=== PATIENT | male | born 1975 | race Caucasian/White ===

== ENCOUNTER 2019-05-28 19:43 | Emergency (ER) | payer MEDICAID, OTHER, SELFPAY ==
[~2019-05-28 19:43] MED LIST: BABY81CH; METOPROLOL; PRAV80TA; PRIL40CA
[2019-05-28] MEDS ORDERED: MULTTAB61 PO (19:50)
[2019-05-28 20:21] LABS: HEMATOCRIT 45.8 % (42.0-52.0); HEMOGLOBIN 15.9 g/dl (13.5-17.5); MEAN CORPUSCULAR HEMOGLOBIN 30.8 pg (27.0-33.0); MEAN CORPUSCULAR HGB CONC 34.7 g/dl (32.0-36.5); MEAN CORPUSCULAR VOLUME 88.8 fl (80.0-96.0); PLATELET COUNT, AUTOMATED 263 10^3/uL (150-450); RED BLOOD COUNT 5.16 10^6/uL (4.30-6.10); WHITE BLOOD COUNT 9.3 10^3/uL (4.0-10.0)
[2019-05-28] MEDS ORDERED: KETOROLAC 30 MG/ML VIAL (J1885) IV ONE (20:45)
[2019-05-28] MEDS ORDERED: NS 1,000 ML IV ONE (21:00)
[2019-05-28 21:25] LABS: ALBUMIN 3.8 GM/DL (3.2-5.2); BILIRUBIN,DIRECT 0.1 MG/DL (0.0-0.2); BILIRUBIN,TOTAL 0.5 MG/DL (0.2-1.0); TOTAL PROTEIN 7.1 GM/DL (6.4-8.2)
[2019-05-28] MEDS ORDERED: BACT800T5 PO (22:21)
[2019-05-28] MEDS ORDERED: BACTRIM 160MG/800MG DS TAB PO ONE (22:30)
[2019-05-28 22:34] VITALS: BP 135/80
== END 2019-05-28 22:39 | disposition home or self-care (01) ==
LOC: M ED 19:43
DX: R31.29 Other microscopic hematuria (principal); I10 Essential (primary) hypertension; F32.9 Major depressive disorder, single episode, unspecified; F41.9 Anxiety disorder, unspecified; K21.9 Gastro-esophageal reflux disease without esophagitis; E78.5 Hyperlipidemia, unspecified; Z87.891 Personal history of nicotine dependence; Z79.899 Other long term (current) drug therapy; Z79.82 Long term (current) use of aspirin
CPT/HCPCS: 36415; 74176; 80047; 80076; 81001; 83690; 85027; 96361; 96374; 99284; J1885

== ENCOUNTER 2019-10-04 05:45 | Emergency (ER) | payer BC, SELFPAY ==
[~2019-10-04] VITALS: Ht 172.7 cm; Wt 154.6 kg
[~2019-10-04 05:45] MED LIST changes: +BACT800T5 PO; +MULTTAB61 PO
[2019-10-04] MEDS ORDERED: IBUPROFEN 800 MG TAB PO ONE (07:00)
--- NOTE | 2019-10-04 08:21 | REP ---
Right ankle series: Four views. History: Trauma. Findings: Four views right ankle demonstrate intact ankle mortise. No ankle fractures seen. There is diffuse soft tissue swelling. On the frontal views, the medial aspect of the tarsal navicula appears possibly subluxed. Recommend foot radiographs. There is mild spurring of the distal aspect of the first metatarsal. A tiny plantar calcaneal spur is also noted. Impression: No ankle fracture seen. Question tarsal navicula subluxation. Recommend foot radiographs. Electronically Signed by Julian Salazar MD 10/04/2019 08:13 A
--- NOTE | 2019-10-04 08:24 | REP ---
RIGHT KNEE SERIES: Four views. HISTORY: Injury. FINDINGS: There is an obliquely oriented nondisplaced fracture in the proximal fibular diaphysis. No tibial fracture is seen. No fracture is noted in the patella or distal femur. There is no evidence of joint effusion. There is no sunrise view obtained. IMPRESSION: Nondisplaced obliquely oriented proximal fibular diaphyseal fracture. No other fracture seen. Electronically Signed by Julian Salazar MD 10/04/2019 09:12 A
--- NOTE | 2019-10-04 08:24 | REP ---
RIGHT TIB/FIB SERIES: Three views. HISTORY: Injury. FINDINGS: There is a nondisplaced fracture of the proximal fibular diaphysis. No tibial fracture is appreciated. Mild soft tissue swelling is seen in the proximal calf. IMPRESSION: Obliquely oriented nondisplaced fracture of the proximal fibular diaphysis. Electronically Signed by Julian Salazar MD 10/04/2019 09:11 A
[2019-10-04] MEDS ORDERED: IBUP80TA PO (08:53)
[2019-10-04 09:13] VITALS: BP 144/77
--- NOTE | 2019-10-04 09:20 | REP ---
RIGHT FOOT: Four views. HISTORY: Injury. FINDINGS: Four views of the right foot are compared with the right ankle views obtained earlier. There is no evidence of fracture or subluxation of the tarsal bones. Plantar calcaneal spurring is noted. The medial process of the tarsal navicula is developmentally prominent which explains the radiographic findings on the ankle radiographs . There is diffuse soft tissue swelling. IMPRESSION: No fracture seen. Developmentally prominent medial process of the tarsal navicula. Electronically Signed by Julian Salazar MD 10/04/2019 10:37 A
== END 2019-10-04 09:35 | disposition home or self-care (01) ==
LOC: M ED 05:45
DX: S82.434A Nondisplaced oblique fracture of shaft of right fibula, initial encounter for closed fracture (principal); Y35.93XA Legal intervention, means unspecified, suspect injured, initial encounter; Y92.410 Unspecified street and highway as the place of occurrence of the external cause

== ENCOUNTER → 2019-11-06 | Outpatient (REF) | payer OTHER ==
[~2019-11-06] MED LIST changes: +IBUP80TA PO
[2019-11-06 11:53] LABS: HEMOGLOBIN A1c 5.6 %
[2019-11-06 12:10] LABS: ALT/SGPT 25 U/L (12-78); BILIRUBIN,TOTAL 0.6 MG/DL (0.2-1.0); BLOOD UREA NITROGEN 16 MG/DL (7-18); CALCIUM LEVEL 8.9 MG/DL (8.5-10.1); CARBON DIOXIDE LEVEL 30 MEQ/L (21-32); CHLORIDE LEVEL 106 MEQ/L (98-107); CHOLESTEROL LEVEL 238 MG/DL (<200); CHOLESTEROL RISK RATIO 6.263 (<5); GLOMERULAR FILTRATION RATE > 60.0 (>60); GLUCOSE, FASTING 106 MG/DL (70-100); HDL CHOLESTEROL 38 MG/DL (>40); LDL CHOLESTEROL 170 MG/DL (<100); NON-HDL-C 200 MG/DL; POTASSIUM SERUM 4.2 MEQ/L (3.5-5.1); SODIUM LEVEL 142 MEQ/L (136-145); TOTAL PROTEIN 7.5 GM/DL (6.4-8.2); TRIGLYCERIDES LEVEL 149 MG/DL (<150)
== END ==
LOC: M SFHCPLAZ 08:29
PROVIDERS: ATTEND Physician Assistant
DX: Z00.00 Encounter for general adult medical examination without abnormal findings (principal); I10 Essential (primary) hypertension; Z13.29 Encounter for screening for other suspected endocrine disorder; Z13.1 Encounter for screening for diabetes mellitus; E78.2 Mixed hyperlipidemia

== ENCOUNTER 2019-12-10 17:17 | Emergency (ER) | payer OTHER ==
[~2019-12-10] VITALS: Ht 172.7 cm; Wt 168.1 kg
[2019-12-10] MEDS ORDERED: METO50TA9 (17:40)
[2019-12-10] MEDS ORDERED: ATOR40TA75 (17:40)
[2019-12-10] MEDS ORDERED: ASPI81TA26 (17:40)
[2019-12-10] MEDS ORDERED: ONDANSETRON 4MG/2ML VIAL (J2405) IV ONE (18:45)
[2019-12-10] MEDS ORDERED: NS 1,000 ML IV ONE (18:45)
[2019-12-10] MEDS ORDERED: MORPHINE 4 MG/ML 1ML VIAL/SYRINGE (J2270) IV ONE (18:45)
[2019-12-10] MEDS ORDERED: ISOVUE-370 76% 100ML VIAL (Q9967) As Ordered ONE (19:34)
[2019-12-10 19:35] LABS: BASO # 0.1 10^3/uL (0.0-0.2); BASO % 0.6 % (0.0-1.0); EOS # 0.1 10^3/uL (0.0-0.5); EOS % 0.7 % (0.0-3.0); HEMATOCRIT 41.3 % (42.0-52.0); HEMOGLOBIN 14.3 g/dl (13.5-17.5); LYMPH # 2.4 10^3/uL (1.5-5.0); LYMPH % 18.7 % (24.0-44.0); MEAN CORPUSCULAR HEMOGLOBIN 28.9 pg (27.0-33.0); MEAN CORPUSCULAR HGB CONC 34.6 g/dl (32.0-36.5); MEAN CORPUSCULAR VOLUME 83.6 fl (80.0-96.0); MONO # 1.1 10^3/uL (0.0-0.8); MONO % 8.8 % (0.0-5.0); NEUTROPHILS % 70.7 % (36.0-66.0); PLATELET COUNT, AUTOMATED 250 10^3/uL (150-450); RED BLOOD COUNT 4.94 10^6/uL (4.30-6.10); WHITE BLOOD COUNT 12.7 10^3/uL (4.0-10.0)
[2019-12-10 19:59] LABS: ALBUMIN 3.2 GM/DL (3.2-5.2); BILIRUBIN,DIRECT 0.3 MG/DL (0.0-0.2); C REACTIVE PROTEIN QUANTITATIV 8.2 MG/DL (0.00-0.30); TOTAL PROTEIN 6.6 GM/DL (6.4-8.2)
[2019-12-10] MEDS ORDERED: POTASSIUM CHLORIDE 10 MEQ SR TABLET PO ONE (20:15)
[2019-12-10 20:16] LABS: INFLUENZA A AMPLIFICATION NEGATIVE (NEGATIVE); INFLUENZA B AMPLIFICATION NEGATIVE (NEGATIVE)
[2019-12-10 20:20] LABS: ERYTHROCYTE SEDIMENTATION RATE 25 mm/hr (0-15)
--- NOTE | 2019-12-10 21:21 | REPVR ---
PROCEDURE INFORMATION: Exam: CT Abdomen And Pelvis With Contrast Exam date and time: 12/10/2019 8:00 PM Age: 44 years old Clinical indication: Abdominal pain; Generalized; Additional info: Lower abd pain, fever, dysuria TECHNIQUE: Imaging protocol: Computed tomography of the abdomen and pelvis with intravenous contrast. Radiation optimization: All CT scans at this facility use at least one of these dose optimization techniques: automated exposure control; mA and/or kV adjustment per patient size (includes targeted exams where dose is matched to clinical indication); or iterative reconstruction. Contrast material: ISOVUE 370; Contrast volume: 100 ml; Contrast route: IV; COMPARISON: CT ABD PELVIS W/O CONTRAST 05/28/2019 8:25 PM FINDINGS: Liver: 8 mm low-dense hepatic lesion near the dome. In a low-risk patient, this lesion is most likely to be benign and no further follow-up is recommended. In a high-risk patient, recommend follow-up MRI in 3-6 months (or earlier if warranted by the patient's specific clinical circumstances). Gallbladder and bile ducts: No radiopaque calculi are seen in the gallbladder. Pancreas: The pancreas is normal. Spleen: Normal. No splenomegaly. Adrenals: The adrenal glands are normal. Kidneys and ureters: Go spleenThe kidneys are normal. Stomach and bowel: There is no evidence of intestinal obstruction. There is marked inflammation surrounding a sigmoid colonic bowel loop in the mid abdomen anteriorly at and just below the level of the umbilicus. Air is seen within the area of inflammation which may be within diverticula or loculated. The area of inflammation measures approximately 7.5 cm AP x 6.6 cm in width and has the appearance of a phlegmon. No drainable abscess is identified. The sigmoid colonic wall is thickened in this location and diverticula are present. Appendix: No evidence of appendicitis however the appendix does lie along the superior margin of the phlegmon series 201, image 56. Intraperitoneal space: Unremarkable. No free air. No significant fluid collection. Vasculature: The aorta is normal. Lymph nodes: Unremarkable. No enlarged lymph nodes. Bladder: Urinary bladder wall is thickened however it is decompressed which may account for this appearance. Reproductive: No significant prostatic enlargement. Bones/joints: Unremarkable. No acute fracture. Soft tissues: Unremarkable. IMPRESSION: Probable acute sigmoid diverticulitis with surrounding phlegmon without drainable abscess. There may be localized perforation but the air could also be within diverticulae. A normal appearing appendix is seen along the superior margin of the inflammation. Electronically signed by: Tran Delarosa On 12/10/2019 21:21:05 PM
[2019-12-10] MEDS ORDERED: metroNIDAZOLE 500 MG in IV 1 EA IV ONE (23:30)
[2019-12-10] MEDS ORDERED: CIPROFLOXACIN 400 MG in IV 1 EA IV ONE (23:30)
[2019-12-11] MEDS ORDERED: CIPR-249 PO (00:32)
[2019-12-11] MEDS ORDERED: NORC1TAB7 PO (00:32)
[2019-12-11] MEDS ORDERED: FLAG500T PO (00:32)
[2019-12-11] MEDS ORDERED: ONDA4TAB6 PO (00:32)
[2019-12-11] MEDS ORDERED: NORCO 5/325MG TABLET (BULK FOR ED) PO ONE (00:45)
[2019-12-11 01:25] VITALS: BP 120/67
--- NOTE | 2019-12-13 18:56 | ED PDOC ---
Post-Departure Follow-Up ct abd/p faxed to noemi snider for fu Ayala Carmona MD Dec 13, 2019 18:56
== END 2019-12-11 02:27 | disposition home or self-care (01) ==
LOC: M ED 17:17
DX: K57.32 Diverticulitis of large intestine without perforation or abscess without bleeding (principal); R10.32 Left lower quadrant pain; R50.9 Fever, unspecified; I10 Essential (primary) hypertension; E78.5 Hyperlipidemia, unspecified; Z79.82 Long term (current) use of aspirin; Z79.899 Other long term (current) drug therapy
CPT/HCPCS: 74177; 80047; 80076; 81001; 83605; 83690; 84132; 85025; 85652; 86140; 87040; 87502; 96361; 96365; 96367; 96374; 96375; 99284; J0744; J2270; J2405; Q9967

== ENCOUNTER → 2020-04-08 | Outpatient (REF) | payer OTHER ==
[~2020-04-08] MED LIST changes: +ASPI81TA26; +ATOR40TA75; +CIPR-249 PO; +FLAG500T PO; +METO50TA9; +NORC1TAB7 PO; +ONDA4TAB6 PO
[2020-04-08 11:21] LABS: BLOOD UREA NITROGEN 17 MG/DL (7-18); CALCIUM LEVEL 8.9 MG/DL (8.5-10.1); CARBON DIOXIDE LEVEL 27 MEQ/L (21-32); CHLORIDE LEVEL 108 MEQ/L (98-107); CREATININE FOR GFR 1.03 MG/DL (0.70-1.30); GLOMERULAR FILTRATION RATE > 60.0 (>60); GLUCOSE, FASTING 119 MG/DL (70-100); POTASSIUM SERUM 3.5 MEQ/L (3.5-5.1); SODIUM LEVEL 142 MEQ/L (136-145)
[2020-04-08 11:31] LABS: FOLATE 7.9 NG/ML; VITAMIN B12 LEVEL 552 PG/ML
== END ==
LOC: M SFHCPLAZ 08:25
PROVIDERS: ATTEND Physician Assistant
DX: R25.1 Tremor, unspecified (principal)

== ENCOUNTER → 2020-06-28 | Outpatient (CLI) | payer OTHER ==
[2020-06-28 12:29] LABS: BASO # 0.1 10^3/uL (0.0-0.2); BASO % 0.9 % (0.0-1.0); EOS # 0.1 10^3/uL (0.0-0.5); EOS % 2.3 % (0.0-3.0); HEMATOCRIT 43.6 % (42.0-52.0); HEMOGLOBIN 14.4 g/dl (13.5-17.5); LYMPH # 1.7 10^3/uL (1.5-5.0); LYMPH % 29.1 % (24.0-44.0); MEAN CORPUSCULAR HEMOGLOBIN 28.6 pg (27.0-33.0); MEAN CORPUSCULAR VOLUME 86.7 fl (80.0-96.0); MONO # 0.5 10^3/uL (0.0-0.8); MONO % 9.1 % (0.0-5.0); NEUTROPHILS # 3.3 10^3/uL (1.5-8.5); NEUTROPHILS % 58.3 % (36.0-66.0); PLATELET COUNT, AUTOMATED 274 10^3/uL (150-450); RED BLOOD COUNT 5.03 10^6/uL (4.30-6.10); WHITE BLOOD COUNT 5.7 10^3/uL (4.0-10.0)
[2020-06-28 13:06] LABS: HEMATOCRIT 43.4 % (42.0-52.0)
[2020-06-28 13:29] LABS: HEMOGLOBIN A1c 4.9 %
[2020-06-28 18:04] LABS: ALBUMIN 3.8 GM/DL (3.2-5.2); ALT/SGPT 33 U/L (12-78); BILIRUBIN,TOTAL 0.8 MG/DL (0.2-1.0); BLOOD UREA NITROGEN 17 MG/DL (7-18); CALCIUM LEVEL 9.3 MG/DL (8.5-10.1); CARBON DIOXIDE LEVEL 26 MEQ/L (21-32); CHLORIDE LEVEL 110 MEQ/L (98-107); CREATININE FOR GFR 0.74 MG/DL (0.70-1.30); FERRITIN 163 NG/ML (26-388); GLOMERULAR FILTRATION RATE > 60.0 (>60); GLUCOSE, FASTING 87 MG/DL (70-100); IRON (FE) 81 UG/DL (65-175); MAGNESIUM LEVEL 2.2 MG/DL (1.8-2.4); PERCENT SATURATION 36.3 % (19.7-50.0); PHOSPHORUS LEVEL 3.3 MG/DL (2.5-4.9); POTASSIUM SERUM 4.4 MEQ/L (3.5-5.1); SODIUM LEVEL 144 MEQ/L (136-145); TOTAL 25(OH) VITAMIN D 64.7 NG/ML (30.0-100.0); TOTAL IRON BINDING CAPACITY 223 UG/DL (250-450); TOTAL PROTEIN 6.6 GM/DL (6.4-8.2); VITAMIN B12 LEVEL 661 PG/ML (247-911)
== END ==
LOC: M PLALAB 09:00
PROVIDERS: ATTEND Surgery
DX: K91.2 Postsurgical malabsorption, not elsewhere classified (principal); E55.9 Vitamin D deficiency, unspecified; Z98.84 Bariatric surgery status

== ENCOUNTER → 2020-10-27 | Outpatient (CLI) | payer OTHER ==
[2020-10-27 11:41] LABS: BASO # 0.1 10^3/uL (0.0-0.2); BASO % 1.1 % (0.0-1.0); EOS # 0.2 10^3/uL (0.0-0.5); EOS % 2.8 % (0.0-3.0); HEMATOCRIT 43.2 % (42.0-52.0); HEMATOCRIT 43.4 % (42.0-52.0); HEMOGLOBIN 14.7 g/dl (13.5-17.5); LYMPH # 1.2 10^3/uL (1.5-5.0); LYMPH % 21.7 % (24.0-44.0); MEAN CORPUSCULAR HEMOGLOBIN 29.2 pg (27.0-33.0); MEAN CORPUSCULAR HGB CONC 33.9 g/dl (32.0-36.5); MEAN CORPUSCULAR VOLUME 86.3 fl (80.0-96.0); MONO # 0.5 10^3/uL (0.0-0.8); MONO % 9.6 % (0.0-5.0); NEUTROPHILS # 3.5 10^3/uL (1.5-8.5); NEUTROPHILS % 64.4 % (36.0-66.0); PLATELET COUNT, AUTOMATED 240 10^3/uL (150-450); RED BLOOD COUNT 5.03 10^6/uL (4.30-6.10); WHITE BLOOD COUNT 5.4 10^3/uL (4.0-10.0)
[2020-10-27 12:35] LABS: ALBUMIN 3.4 GM/DL (3.2-5.2); ALT/SGPT 29 U/L (12-78); BILIRUBIN,TOTAL 0.6 MG/DL (0.2-1.0); BLOOD UREA NITROGEN 15 MG/DL (7-18); CALCIUM LEVEL 8.8 MG/DL (8.5-10.1); CARBON DIOXIDE LEVEL 27 MEQ/L (21-32); CHLORIDE LEVEL 108 MEQ/L (98-107); CREATININE FOR GFR 0.77 MG/DL (0.70-1.30); GLOMERULAR FILTRATION RATE > 60.0 (>60); GLUCOSE, FASTING 86 MG/DL (70-100); IRON (FE) 52 UG/DL (65-175); MAGNESIUM LEVEL 2.5 MG/DL (1.8-2.4); PERCENT SATURATION 22.6 % (19.7-50.0); POTASSIUM SERUM 3.1 MEQ/L (3.5-5.1); SODIUM LEVEL 143 MEQ/L (136-145); TOTAL IRON BINDING CAPACITY 230 UG/DL (250-450); TOTAL PROTEIN 6.2 GM/DL (6.4-8.2); VITAMIN B12 LEVEL 499 PG/ML (247-911)
[2020-10-27 12:36] LABS: FERRITIN 148 NG/ML (26-388)
[2020-10-27 15:52] LABS: HEMOGLOBIN A1c 5.2 %
== END ==
LOC: M PLALAB 08:01
PROVIDERS: ATTEND Surgery
DX: K91.2 Postsurgical malabsorption, not elsewhere classified (principal); Z98.84 Bariatric surgery status; E55.9 Vitamin D deficiency, unspecified; Z86.39 Personal history of other endocrine, nutritional and metabolic disease

== ENCOUNTER → 2020-10-27 | Outpatient (REF) | payer OTHER ==
[2020-10-27 12:25] LABS: ALBUMIN 3.4 GM/DL (3.2-5.2); ALT/SGPT 30 U/L (12-78); BILIRUBIN,TOTAL 0.6 MG/DL (0.2-1.0); BLOOD UREA NITROGEN 16 MG/DL (7-18); CALCIUM LEVEL 8.6 MG/DL (8.5-10.1); CARBON DIOXIDE LEVEL 28 MEQ/L (21-32); CHLORIDE LEVEL 107 MEQ/L (98-107); CHOLESTEROL LEVEL 122 MG/DL (<200); CHOLESTEROL RISK RATIO 3.297 (<5); CREATININE FOR GFR 0.82 MG/DL (0.70-1.30); GLOMERULAR FILTRATION RATE > 60.0 (>60); GLUCOSE, FASTING 84 MG/DL (70-100); HDL CHOLESTEROL 37 MG/DL (>40); LDL CHOLESTEROL 73 MG/DL (<100); NON-HDL-C 85 MG/DL; POTASSIUM SERUM 3.1 MEQ/L (3.5-5.1); SODIUM LEVEL 143 MEQ/L (136-145); TOTAL PROTEIN 6.1 GM/DL (6.4-8.2); TRIGLYCERIDES LEVEL 59 MG/DL (<150)
[2020-10-27 12:46] LABS: MALB URINE SIEMENS 7.4 MG/L; MAU/CREAT RATIO 6.4 MCG/MG (0.0-30.0)
[2020-10-27 15:53] LABS: HEMOGLOBIN A1c 5.1 %
== END ==
LOC: M PLALAB 07:59
PROVIDERS: ATTEND Physician Assistant
DX: I10 Essential (primary) hypertension (principal); R73.01 Impaired fasting glucose; E78.2 Mixed hyperlipidemia

== ENCOUNTER → 2020-11-24 | Outpatient (CLI) | payer OTHER | LOC: M PLALAB 08:03 | PROVIDERS: ATTEND Surgery | DX: E87.6 Hypokalemia (principal) ==

== ENCOUNTER 2021-12-19 16:15 | Emergency (ER) | payer OTHER ==
[~2021-12-19] VITALS: Ht 172.7 cm; Wt 102.3 kg
[2021-12-19 17:12] LABS: BASO # 0.1 10^3/uL (0.0-0.2); BASO % 0.8 % (0.0-1.0); EOS # 0.1 10^3/uL (0.0-0.5); EOS % 1.7 % (0.0-3.0); HEMATOCRIT 43.3 % (42.0-52.0); LYMPH # 2.6 10^3/uL (1.5-5.0); LYMPH % 34.6 % (24.0-44.0); MEAN CORPUSCULAR HEMOGLOBIN 30.1 pg (27.0-33.0); MEAN CORPUSCULAR HGB CONC 34.6 g/dl (32.0-36.5); MEAN CORPUSCULAR VOLUME 86.8 fl (80.0-96.0); MONO # 0.6 10^3/uL (0.0-0.8); MONO % 8.3 % (2.0-8.0); NEUTROPHILS # 4.1 10^3/uL (1.5-8.5); NEUTROPHILS % 54.3 % (36.0-66.0); PLATELET COUNT, AUTOMATED 245 10^3/uL (150-450); RED BLOOD COUNT 4.99 10^6/uL (4.30-6.10); WHITE BLOOD COUNT 7.6 10^3/uL (4.0-10.0)
[2021-12-19 17:47] LABS: ALBUMIN 3.7 GM/DL (3.2-5.2); ALT/SGPT 28 U/L (12-78); BILIRUBIN,DIRECT 0.1 MG/DL (0.0-0.2); BILIRUBIN,TOTAL 0.4 MG/DL (0.2-1.0); BLOOD UREA NITROGEN 15 MG/DL (7-18); CALCIUM LEVEL 8.4 MG/DL (8.5-10.1); CARBON DIOXIDE LEVEL 31 MEQ/L (21-32); CHLORIDE LEVEL 108 MEQ/L (98-107); CREATININE FOR GFR 0.89 MG/DL (0.70-1.30); GLOMERULAR FILTRATION RATE > 60.0 (>60); GLUCOSE, FASTING 94 MG/DL (70-100); LIPASE 84 U/L (73-393); POTASSIUM SERUM 3.8 MEQ/L (3.5-5.1); SODIUM LEVEL 141 MEQ/L (136-145); TOTAL PROTEIN 6.5 GM/DL (6.4-8.2)
[2021-12-19] MEDS ORDERED: ISOVUE-370 76% 100ML VIAL As Ordered ONE (20:22)
[2021-12-19 22:18] VITALS: BP 118/72
== END 2021-12-19 22:19 | disposition home or self-care (01) ==
LOC: M ED 16:15
DX: R10.84 Generalized abdominal pain (principal); R11.10 Vomiting, unspecified; I10 Essential (primary) hypertension; K21.9 Gastro-esophageal reflux disease without esophagitis; E78.5 Hyperlipidemia, unspecified; Z98.84 Bariatric surgery status
CPT/HCPCS: 36415; 74177; 80048; 80076; 81001; 83690; 85025; 87086; 99284; Q9967

== ENCOUNTER 2022-12-17 18:56 | Emergency (ER) | payer OTHER ==
[~2022-12-17] VITALS: Ht 172.7 cm; Wt 104.8 kg
[2022-12-17 20:38] VITALS: BP 124/70
[2022-12-17 21:42] LABS: BASO # 0.1 10^3/uL (0.0-0.2); BASO % 0.9 % (0.0-1.0); EOS # 0.2 10^3/uL (0.0-0.5); EOS % 1.7 % (0.0-3.0); HEMATOCRIT 41.1 % (42.0-52.0); HEMOGLOBIN 14.8 g/dl (13.5-17.5); LYMPH # 4.3 10^3/uL (1.5-5.0); LYMPH % 41.6 % (24.0-44.0); MEAN CORPUSCULAR HEMOGLOBIN 30.6 pg (27.0-33.0); MEAN CORPUSCULAR VOLUME 84.9 fl (80.0-96.0); MONO # 0.9 10^3/uL (0.0-0.8); MONO % 8.5 % (2.0-8.0); NEUTROPHILS # 4.8 10^3/uL (1.5-8.5); PLATELET COUNT, AUTOMATED 264 10^3/uL (150-450); RED BLOOD COUNT 4.84 10^6/uL (4.30-6.10); WHITE BLOOD COUNT 10.3 10^3/uL (4.0-10.0)
[2022-12-17 21:55] LABS: INR 0.95; PROTHROMBIN TIME 12.9 SECONDS (12.5-14.5)
[2022-12-17 21:56] LABS: PARTIAL THROMBOPLASTIN TIME 31.9 SECONDS (24.8-34.2)
[2022-12-17 21:57] LABS: AMPHETAMINES LEVEL URINE NEGATIVE (NEGATIVE); BARBITURATES URINE NEGATIVE (NEGATIVE); BENZODIAZEPINES URINE NEGATIVE (NEGATIVE); CANNABINOIDS URINE NEGATIVE (NEGATIVE); COCAINE METABOLITE URINE NEGATIVE (NEGATIVE); METHADONE URINE NEGATIVE (NEGATIVE); OPIATES URINE NEGATIVE (NEGATIVE); PHENCYCLIDINE URINE NEGATIVE (NEGATIVE)
[2022-12-17 22:15] LABS: CK-MB VALUE MASS < 1.0 NG/ML (<3.6); ETHYL ALCOHOL (ETHANOL) 0.218 % (0.000-0.010); LIPASE 31 U/L (12-53)
[2022-12-17 22:17] LABS: ALBUMIN 3.7 G/DL (3.2-5.2); ALKALINE PHOSPHATASE 76 U/L (46-116); ALT/SGPT 15 U/L (7.0-40); AST/SGOT 18 U/L (<34); BILIRUBIN,DIRECT 0.1 MG/DL (<0.4); BILIRUBIN,TOTAL 0.3 MG/DL (0.3-1.2); BLOOD UREA NITROGEN 13 MG/DL (9-23); CALCIUM LEVEL 8.4 MG/DL (8.5-10.1); CARBON DIOXIDE LEVEL 28 MMOL/L (20-31); CHLORIDE LEVEL 104 MMOL/L (98-107); CPK CREATINE PHOSPHOKINASE 133 U/L (46-171); CREATININE FOR GFR 0.72 MG/DL (0.70-1.30); GLOMERULAR FILTRATION RATE > 60.0 (>60); GLUCOSE, FASTING 90 MG/DL (60-100); MAGNESIUM LEVEL 2.1 MG/DL (1.8-2.4); MB/CK RELATIVE INDEX 0.75 (< OR =4); POTASSIUM SERUM 3.2 MMOL/L (3.5-5.1); SODIUM LEVEL 141 MMOL/L (136-145); TOTAL PROTEIN 6.4 G/DL (5.7-8.2)
[2022-12-17 22:34] LABS: RSV AMPLIFICATION NEGATIVE (NEGATIVE)
== END 2022-12-17 22:30 | disposition left against medical advice (07) ==
LOC: M ED 18:56
DX: F10.239 Alcohol dependence with withdrawal, unspecified (principal); Z53.21 Procedure and treatment not carried out due to patient leaving prior to being seen by health care provider

== ENCOUNTER 2023-02-16 21:09 | Emergency (ER) | payer OTHER ==
[~2023-02-16] VITALS: Ht 172.7 cm; Wt 100.0 kg
[~2023-02-16 21:09] MED LIST changes: +THIAMINE 100 MG TAB PO SCH
[2023-02-16] MEDS ORDERED: LORazepam 2 MG TAB PO PRN (21:40)
[2023-02-16 21:54] LABS: HEMATOCRIT 43.7 % (42.0-52.0); HEMOGLOBIN 15.2 g/dl (13.5-17.5); MEAN CORPUSCULAR HEMOGLOBIN 30.5 pg (27.0-33.0); MEAN CORPUSCULAR HGB CONC 34.8 g/dl (32.0-36.5); MEAN CORPUSCULAR VOLUME 87.6 fl (80.0-96.0); PLATELET COUNT, AUTOMATED 295 10^3/uL (150-450); RED BLOOD COUNT 4.99 10^6/uL (4.30-6.10); WHITE BLOOD COUNT 9.3 10^3/uL (4.0-10.0)
[2023-02-16 22:24] LABS: AMPHETAMINES LEVEL URINE NEGATIVE (NEGATIVE); BARBITURATES URINE NEGATIVE (NEGATIVE); BENZODIAZEPINES URINE NEGATIVE (NEGATIVE); CANNABINOIDS URINE NEGATIVE (NEGATIVE); COCAINE METABOLITE URINE NEGATIVE (NEGATIVE); METHADONE URINE NEGATIVE (NEGATIVE); OPIATES URINE NEGATIVE (NEGATIVE); PHENCYCLIDINE URINE NEGATIVE (NEGATIVE)
[2023-02-16 22:27] LABS: ETHYL ALCOHOL (ETHANOL) 0.258 % (0.000-0.010)
[2023-02-16 22:29] LABS: ALKALINE PHOSPHATASE 71 U/L (46-116); ALT/SGPT 18 U/L (7.0-40); AST/SGOT 19 U/L (<34); BILIRUBIN,DIRECT 0.1 MG/DL (<0.4); BILIRUBIN,TOTAL 0.3 MG/DL (0.3-1.2); BLOOD UREA NITROGEN 10 MG/DL (9-23); CALCIUM LEVEL 8.4 MG/DL (8.5-10.1); CARBON DIOXIDE LEVEL 29 MMOL/L (20-31); CHLORIDE LEVEL 105 MMOL/L (98-107); CREATININE FOR GFR 0.72 MG/DL (0.70-1.30); GLOMERULAR FILTRATION RATE > 60.0 (>60); GLUCOSE, FASTING 95 MG/DL (60-100); POTASSIUM SERUM 3.3 MMOL/L (3.5-5.1); SALICYLATE LEVEL < 3.0 MG/DL (<30); SODIUM LEVEL 141 MMOL/L (136-145); TOTAL PROTEIN 6.8 G/DL (5.7-8.2)
[2023-02-16 22:31] LABS: THYROID STIMULATING HORMONE 2.755 uIU/ML (0.55-4.78)
[2023-02-16 22:33] LABS: ACETAMINOPHEN LEVEL < 2.0 UG/ML (10.0-20.0)
[2023-02-17 02:27] LABS: CK-MB VALUE MASS < 1.0 NG/ML (<3.6)
[2023-02-17 02:29] LABS: CPK CREATINE PHOSPHOKINASE 115 U/L (46-171); MB/CK RELATIVE INDEX 0.86 (< OR =4)
[2023-02-17 08:16] VITALS: BP 152/86
[2023-02-17] MEDS ORDERED: FOLIC ACID 1MG TAB PO SCH (09:00)
[2023-02-17] MEDS ORDERED: MULTIVITAMINS/MINERALS THERAP 1 TAB PO SCH (09:00)
[2023-02-18] MEDS ORDERED: VITA500T40 PO (23:51)
[2023-02-18] MEDS ORDERED: BIOT1000 PO (23:51)
[2023-02-18] MEDS ORDERED: VITA100093 PO (23:51)
[2023-02-18] MEDS ORDERED: NALT50TA4 PO (23:51)
[2023-02-18] MEDS ORDERED: METO50TA9 PO (23:51)
[2023-02-18] MEDS ORDERED: VITMTA PO (23:51)
[2023-02-18] MEDS ORDERED: C 50TAB PO (23:51)
== END 2023-02-17 08:19 | disposition home or self-care (01) ==
LOC: M ED 21:09
DX: F10.129 Alcohol abuse with intoxication, unspecified (principal); I10 Essential (primary) hypertension; K21.9 Gastro-esophageal reflux disease without esophagitis; Z98.84 Bariatric surgery status; F17.200 Nicotine dependence, unspecified, uncomplicated; Z79.899 Other long term (current) drug therapy; Z79.82 Long term (current) use of aspirin

== ENCOUNTER 2023-02-18 20:00 | Emergency (ER) | payer OTHER ==
[~2023-02-18] VITALS: Ht 177.8 cm; Wt 84.1 kg
[~2023-02-18 20:00] MED LIST changes: -THIAMINE 100 MG TAB PO SCH
[2023-02-18 20:48] LABS: HEMATOCRIT 42.7 % (42.0-52.0); HEMOGLOBIN 15.2 g/dl (13.5-17.5); MEAN CORPUSCULAR HEMOGLOBIN 30.5 pg (27.0-33.0); MEAN CORPUSCULAR HGB CONC 35.6 g/dl (32.0-36.5); MEAN CORPUSCULAR VOLUME 85.6 fl (80.0-96.0); PLATELET COUNT, AUTOMATED 308 10^3/uL (150-450); RED BLOOD COUNT 4.99 10^6/uL (4.30-6.10); WHITE BLOOD COUNT 11.1 10^3/uL (4.0-10.0)
[2023-02-18 21:02] LABS: AMPHETAMINES LEVEL URINE NEGATIVE (NEGATIVE); BARBITURATES URINE NEGATIVE (NEGATIVE); BENZODIAZEPINES URINE NEGATIVE (NEGATIVE); COCAINE METABOLITE URINE NEGATIVE (NEGATIVE); METHADONE URINE NEGATIVE (NEGATIVE); OPIATES URINE NEGATIVE (NEGATIVE); PHENCYCLIDINE URINE NEGATIVE (NEGATIVE)
[2023-02-18 21:03] LABS: CANNABINOIDS URINE NEGATIVE (NEGATIVE)
[2023-02-18 21:04] LABS: ETHYL ALCOHOL (ETHANOL) 0.237 % (0.000-0.010)
[2023-02-18 21:06] LABS: ACETAMINOPHEN LEVEL < 2.0 UG/ML (10.0-20.0); ALBUMIN 3.9 G/DL (3.2-5.2); ALKALINE PHOSPHATASE 74 U/L (46-116); ALT/SGPT 19 U/L (7.0-40); AST/SGOT 20 U/L (<34); BILIRUBIN,DIRECT 0.1 MG/DL (<0.4); BILIRUBIN,TOTAL 0.3 MG/DL (0.3-1.2); BLOOD UREA NITROGEN 11 MG/DL (9-23); CALCIUM LEVEL 8.6 MG/DL (8.5-10.1); CARBON DIOXIDE LEVEL 25 MMOL/L (20-31); CHLORIDE LEVEL 103 MMOL/L (98-107); GLOMERULAR FILTRATION RATE > 60.0 (>60); GLUCOSE, FASTING 72 MG/DL (60-100); POTASSIUM SERUM 3.2 MMOL/L (3.5-5.1); SALICYLATE LEVEL 6.1 MG/DL (<30); SODIUM LEVEL 138 MMOL/L (136-145); TOTAL PROTEIN 6.8 G/DL (5.7-8.2)
[2023-02-18 21:08] LABS: THYROID STIMULATING HORMONE 2.426 uIU/ML (0.55-4.78)
[2023-02-18] MEDS ORDERED: VITA100093 PO (23:51)
[2023-02-18] MEDS ORDERED: VITA500T40 PO (23:51)
[2023-02-18] MEDS ORDERED: C 50TAB PO (23:51)
[2023-02-18] MEDS ORDERED: NALT50TA4 PO (23:51)
[2023-02-18] MEDS ORDERED: VITMTA PO (23:51)
[2023-02-18] MEDS ORDERED: METO50TA9 PO (23:51)
[2023-02-18] MEDS ORDERED: BIOT1000 PO (23:51)
[2023-02-18] MEDS ORDERED: HOME MED LIST COMPLETE! XX SCH (23:55)
[2023-02-19 07:36] VITALS: BP 132/81
== END 2023-02-19 07:42 | disposition home or self-care (01) ==
LOC: M ED 20:00
DX: F10.129 Alcohol abuse with intoxication, unspecified (principal); F17.200 Nicotine dependence, unspecified, uncomplicated; Z79.899 Other long term (current) drug therapy; Z98.84 Bariatric surgery status

== ENCOUNTER → 2023-04-11 | Outpatient (REF) | payer OTHER ==
[~2023-04-11] MED LIST changes: +BIOT1000 PO; +C 50TAB PO; +METO50TA9 PO; +NALT50TA4 PO; +VITA100093 PO; +VITA500T40 PO; +VITMTA PO
[2023-04-11 17:11] LABS: HEMATOCRIT 43.2 % (42.0-52.0); HEMOGLOBIN 14.9 g/dl (13.5-17.5); MEAN CORPUSCULAR HEMOGLOBIN 30.4 pg (27.0-33.0); MEAN CORPUSCULAR HGB CONC 34.5 g/dl (32.0-36.5); MEAN CORPUSCULAR VOLUME 88.2 fl (80.0-96.0); PLATELET COUNT, AUTOMATED 240 10^3/uL (150-450)
[2023-04-11 17:45] LABS: TOTAL IRON BINDING CAPACITY 266 UG/DL (250-425)
[2023-04-11 17:46] LABS: IRON (FE) 81 UG/DL (65-175); PERCENT SATURATION 30.5 % (19.7-50.0)
[2023-04-11 17:47] LABS: ALBUMIN 3.7 G/DL (3.2-5.2); ALKALINE PHOSPHATASE 54 U/L (46-116); ALT/SGPT 16 U/L (7.0-40); AST/SGOT 13 U/L (<34); BILIRUBIN,TOTAL 0.8 MG/DL (0.3-1.2); BLOOD UREA NITROGEN 11 MG/DL (9-23); CALCIUM LEVEL 9.3 MG/DL (8.5-10.1); CARBON DIOXIDE LEVEL 28 MMOL/L (20-31); CHLORIDE LEVEL 107 MMOL/L (98-107); CHOLESTEROL LEVEL 179 MG/DL (<200); CHOLESTEROL RISK RATIO 2.49 (<5); CREATININE FOR GFR 0.67 MG/DL (0.70-1.30); GLOMERULAR FILTRATION RATE > 60.0 (>60); GLUCOSE, FASTING 93 MG/DL (60-100); HDL CHOLESTEROL 71.8 MG/DL (>40); LDL CHOLESTEROL 98.4 MG/DL (<100); NON-HDL-C 107.2 MG/DL; POTASSIUM SERUM 4.3 MMOL/L (3.5-5.1); SODIUM LEVEL 141 MMOL/L (136-145); TOTAL PROTEIN 6.3 G/DL (5.7-8.2); TRIGLYCERIDES LEVEL 44 MG/DL (<150)
[2023-04-11 17:49] LABS: FERRITIN 92.1 NG/ML (10.5-307.3); THYROID STIMULATING HORMONE 0.601 uIU/ML (0.55-4.78)
[2023-04-11 17:50] LABS: VITAMIN B12 LEVEL 1532 PG/ML (211-911)
[2023-04-11 17:51] LABS: FOLATE 17.63 NG/ML (>5.4)
[2023-04-11 17:54] LABS: HEMOGLOBIN A1c 4.7 % (4.0-6.0)
== END ==
LOC: M LAB REF 16:26
PROVIDERS: ATTEND Physician Assistant
DX: I10 Essential (primary) hypertension (principal); Z13.228 Encounter for screening for other metabolic disorders; Z98.84 Bariatric surgery status

== ENCOUNTER 2023-06-03 17:36 | Emergency (ER) | payer OTHER ==
[~2023-06-03] VITALS: Ht 172.7 cm; Wt 105.5 kg
[2023-06-03 17:47] VITALS: TEMP 98.4
[2023-06-03 18:17] LABS: BASO # 0.1 10^3/uL (0.0-0.2); EOS # 0.2 10^3/uL (0.0-0.5); EOS % 1.7 % (0.0-3.0); HEMATOCRIT 43.5 % (42.0-52.0); HEMOGLOBIN 15.2 g/dl (13.5-17.5); LYMPH # 3.3 10^3/uL (1.5-5.0); LYMPH % 32.2 % (24.0-44.0); MEAN CORPUSCULAR HEMOGLOBIN 31.1 pg (27.0-33.0); MEAN CORPUSCULAR HGB CONC 34.9 g/dl (32.0-36.5); MEAN CORPUSCULAR VOLUME 89.1 fl (80.0-96.0); MONO # 0.8 10^3/uL (0.0-0.8); MONO % 8.2 % (2.0-8.0); NEUTROPHILS # 5.7 10^3/uL (1.5-8.5); NEUTROPHILS % 56.4 % (36.0-66.0); PLATELET COUNT, AUTOMATED 232 10^3/uL (150-450); RED BLOOD COUNT 4.88 10^6/uL (4.30-6.10); WHITE BLOOD COUNT 10.1 10^3/uL (4.0-10.0)
[2023-06-03 18:36] VITALS: O2SAT 96
[2023-06-03 18:40] LABS: LIPASE 101 U/L (12-53)
[2023-06-03 18:42] LABS: ALBUMIN 3.5 G/DL (3.2-5.2); ALKALINE PHOSPHATASE 59 U/L (46-116); ALT/SGPT 18 U/L (7.0-40); AST/SGOT 20 U/L (<34); BILIRUBIN,DIRECT 0.2 MG/DL (<0.4); BILIRUBIN,TOTAL 0.6 MG/DL (0.3-1.2); BLOOD UREA NITROGEN 7 MG/DL (9-23); CALCIUM LEVEL 8.1 MG/DL (8.5-10.1); CARBON DIOXIDE LEVEL 25 MMOL/L (20-31); CHLORIDE LEVEL 104 MMOL/L (98-107); CK-MB VALUE MASS < 1.0 NG/ML (<3.6); CPK CREATINE PHOSPHOKINASE 175 U/L (46-171); CREATININE FOR GFR 0.73 MG/DL (0.70-1.30); GLOMERULAR FILTRATION RATE > 60.0 (>60); GLUCOSE, FASTING 79 MG/DL (60-100); MB/CK RELATIVE INDEX 0.57 (< OR =4); POTASSIUM SERUM 3.6 MMOL/L (3.5-5.1); SODIUM LEVEL 138 MMOL/L (136-145); TOTAL PROTEIN 6.5 G/DL (5.7-8.2)
[2023-06-03 18:46] VITALS: BP 96/51
[2023-06-03 19:45] LABS: ETHYL ALCOHOL (ETHANOL) 0.299 % (0.000-0.010)
== END 2023-06-03 19:15 | disposition left against medical advice (07) ==
LOC: M ED 17:36
DX: R10.9 Unspecified abdominal pain (principal); R07.9 Chest pain, unspecified; I10 Essential (primary) hypertension; K21.9 Gastro-esophageal reflux disease without esophagitis; E78.5 Hyperlipidemia, unspecified; F32.A Depression, unspecified; F10.10 Alcohol abuse, uncomplicated; Z98.84 Bariatric surgery status; F17.210 Nicotine dependence, cigarettes, uncomplicated; Z79.899 Other long term (current) drug therapy

== ENCOUNTER 2023-09-11 09:31 | Day surgery (SDC) | payer OTHER ==
[~2023-09-11] VITALS: Ht 172.7 cm; Wt 106.1 kg
[~2023-09-11 09:31] MED LIST changes: +NS 1,000 ML IV ONE
[2023-09-11] MEDS ORDERED: propofoL 200 MG/20 ML VIAL As Ordered ONE ×4 (10:40→11:14)
[2023-09-11 11:21] VITALS: TEMP 96
[2023-09-11 11:40] VITALS: BP 139/80; O2SAT 99
== END 2023-09-11 11:54 | disposition home or self-care (01) ==
LOC: M OPP 09:31
PROVIDERS: ATTEND Surgery
DX: Z12.11 Encounter for screening for malignant neoplasm of colon (principal); K57.30 Diverticulosis of large intestine without perforation or abscess without bleeding; D12.0 Benign neoplasm of cecum; I10 Essential (primary) hypertension; Z80.0 Family history of malignant neoplasm of digestive organs; F32.A Depression, unspecified; Z79.899 Other long term (current) drug therapy; F41.9 Anxiety disorder, unspecified

== ENCOUNTER 2023-10-16 13:24 | Emergency (ER) | payer OTHER ==
[~2023-10-16] VITALS: Ht 172.7 cm; Wt 104.4 kg
[~2023-10-16 13:24] MED LIST changes: -NS 1,000 ML IV ONE
[2023-10-16] MEDS ORDERED: ACAM0.05 (13:37)
[2023-10-16] MEDS ORDERED: LEXA1TAB2 PO (13:37)
[2023-10-16] MEDS ORDERED: OMEP40CA5 (13:37)
[2023-10-16] MEDS ORDERED: QUET1TAB17 (13:37)
[2023-10-16] MEDS ORDERED: APAP325T4 PO (13:37)
[2023-10-16] MEDS ORDERED: VENL150C43 (13:37)
[2023-10-16 14:17] LABS: BASO # 0.1 10^3/uL (0.0-0.2); BASO % 1.6 % (0.0-1.0); EOS # 0.1 10^3/uL (0.0-0.5); EOS % 1.6 % (0.0-3.0); HEMOGLOBIN 15.8 g/dl (13.5-17.5); LYMPH # 2.2 10^3/uL (1.5-5.0); MEAN CORPUSCULAR HEMOGLOBIN 32.4 pg (27.0-33.0); MEAN CORPUSCULAR HGB CONC 35.9 g/dl (32.0-36.5); MEAN CORPUSCULAR VOLUME 90.2 fl (80.0-96.0); MONO % 14.9 % (2.0-8.0); NEUTROPHILS % 47.3 % (36.0-66.0); PLATELET COUNT, AUTOMATED 272 10^3/uL (150-450); RED BLOOD COUNT 4.88 10^6/uL (4.30-6.10); WHITE BLOOD COUNT 6.4 10^3/uL (4.0-10.0)
[2023-10-16 14:48] LABS: INR 1.06; PROTHROMBIN TIME 13.5 SECONDS (12.5-14.5)
[2023-10-16 14:49] LABS: PARTIAL THROMBOPLASTIN TIME 29.7 SECONDS (24.8-34.2)
[2023-10-16 14:56] LABS: LIPASE 39 U/L (12-53)
[2023-10-16 14:57] LABS: ETHYL ALCOHOL (ETHANOL) 0.284 % (0.000-0.010)
[2023-10-16 14:58] LABS: ALBUMIN 3.7 G/DL (3.2-5.2); ALKALINE PHOSPHATASE 59 U/L (46-116); ALT/SGPT 49 U/L (7.0-40); AST/SGOT 29 U/L (<34); BILIRUBIN,DIRECT 0.2 MG/DL (<0.4); BILIRUBIN,TOTAL 0.4 MG/DL (0.3-1.2); BLOOD UREA NITROGEN 7 MG/DL (9-23); CALCIUM LEVEL 8.6 MG/DL (8.5-10.1); CARBON DIOXIDE LEVEL 32 MMOL/L (20-31); CHLORIDE LEVEL 102 MMOL/L (98-107); CREATININE FOR GFR 0.81 MG/DL (0.70-1.30); GLOMERULAR FILTRATION RATE > 60.0 (>60); GLUCOSE, FASTING 103 MG/DL (60-100); SODIUM LEVEL 141 MMOL/L (136-145)
[2023-10-16] MEDS ORDERED: ISOVUE-370 76% 100ML VIAL As Ordered ONE (15:10)
[2023-10-16 16:27] VITALS: BP 133/75; TEMP 97.9; O2SAT 96
[2023-10-16] MEDS ORDERED: DOCU100C17 PO (16:36)
== END 2023-10-16 16:52 | disposition home or self-care (01) ==
LOC: M ED 13:24 → EDBD 13:24 → M ED 16:52
DX: K62.5 Hemorrhage of anus and rectum (principal); K59.00 Constipation, unspecified; K57.30 Diverticulosis of large intestine without perforation or abscess without bleeding; K76.0 Fatty (change of) liver, not elsewhere classified; I10 Essential (primary) hypertension; E78.5 Hyperlipidemia, unspecified; K21.9 Gastro-esophageal reflux disease without esophagitis; F41.9 Anxiety disorder, unspecified; F10.10 Alcohol abuse, uncomplicated; F32.A Depression, unspecified; Z98.84 Bariatric surgery status; Z79.899 Other long term (current) drug therapy
CPT/HCPCS: 74177; 80048; 80076; 82077; 83690; 85025; 85610; 85730; 86850; 86900; 86901; 99284; Q9967

== ENCOUNTER 2023-10-22 19:43 | Inpatient (IN) | payer OTHER ==
[~2023-10-22] VITALS: Ht 172.7 cm; Wt 110.8 kg
[~2023-10-22 19:43] MED LIST changes: +ACAM0.05 PO; +APAP325T4 PO; +DOCU100C17 PO; +LEXA1TAB2 PO; +OMEP40CA5 PO; +QUET1TAB17 PO; +VENL150C43
[2023-10-22] MEDS: NS 1,000 ML IV ONE ×3 (19:58→22:10)
[2023-10-22 20:24] LABS: BASO # 0.1 10^3/uL (0.0-0.2); BASO % 1.4 % (0.0-1.0); EOS # 0.1 10^3/uL (0.0-0.5); EOS % 1.3 % (0.0-3.0); HEMATOCRIT 38.6 % (42.0-52.0); HEMOGLOBIN 13.9 g/dl (13.5-17.5); LYMPH % 22.2 % (24.0-44.0); MEAN CORPUSCULAR HEMOGLOBIN 32.3 pg (27.0-33.0); MEAN CORPUSCULAR VOLUME 89.6 fl (80.0-96.0); MONO % 11.3 % (2.0-8.0); NEUTROPHILS # 5.6 10^3/uL (1.5-8.5); NEUTROPHILS % 63.2 % (36.0-66.0); PLATELET COUNT, AUTOMATED 281 10^3/uL (150-450); RED BLOOD COUNT 4.31 10^6/uL (4.30-6.10); WHITE BLOOD COUNT 8.8 10^3/uL (4.0-10.0)
[2023-10-22 20:44] LABS: ETHYL ALCOHOL (ETHANOL) 0.145 % (0.000-0.010)
[2023-10-22 20:46] LABS: ALBUMIN 3.2 G/DL (3.2-5.2); ALKALINE PHOSPHATASE 66 U/L (46-116); ALT/SGPT 53 U/L (7.0-40); AST/SGOT 47 U/L (<34); BILIRUBIN,DIRECT 0.2 MG/DL (<0.4); BILIRUBIN,TOTAL 0.4 MG/DL (0.3-1.2); BLOOD UREA NITROGEN 8 MG/DL (9-23); CALCIUM LEVEL 7.7 MG/DL (8.5-10.1); CARBON DIOXIDE LEVEL 31 MMOL/L (20-31); CHLORIDE LEVEL 100 MMOL/L (98-107); CPK CREATINE PHOSPHOKINASE 85 U/L (46-171); CREATININE FOR GFR 0.75 MG/DL (0.70-1.30); GLOMERULAR FILTRATION RATE > 60.0 (>60); GLUCOSE, FASTING 92 MG/DL (60-100); POTASSIUM SERUM 3.8 MMOL/L (3.5-5.1); SALICYLATE LEVEL < 3.0 MG/DL (<30); SODIUM LEVEL 137 MMOL/L (136-145); TOTAL PROTEIN 6.2 G/DL (5.7-8.2)
[2023-10-22 20:48] LABS: THYROID STIMULATING HORMONE 1.678 uIU/ML (0.55-4.78)
[2023-10-22 21:08] LABS: RSV AMPLIFICATION NEGATIVE (NEGATIVE)
[2023-10-22 21:37] LABS: AMPHETAMINES LEVEL URINE NEGATIVE (NEGATIVE); BARBITURATES URINE NEGATIVE (NEGATIVE); BENZODIAZEPINES URINE NEGATIVE (NEGATIVE); CANNABINOIDS URINE NEGATIVE (NEGATIVE); COCAINE METABOLITE URINE NEGATIVE (NEGATIVE); METHADONE URINE NEGATIVE (NEGATIVE); OPIATES URINE NEGATIVE (NEGATIVE); PHENCYCLIDINE URINE NEGATIVE (NEGATIVE)
[2023-10-23] MEDS: NS 1,000 ML IV ONE (00:04)
[2023-10-23 00:44] LABS: ETHYL ALCOHOL (ETHANOL) 0.05 % (0.000-0.010)
[2023-10-23] MEDS: QUEtiapine FUMARATE 25 MG TAB PO SCH (07:48)
[2023-10-23] MEDS: VITAMIN D 1,000 INTERNATIONAL UNITS TABLET PO SCH (07:48)
[2023-10-23] MEDS: ASCORBIC ACID 500 MG TAB PO SCH (07:48)
[2023-10-23] MEDS: DOCUSATE SODIUM 100MG CAPSULE PO SCH (07:48)
[2023-10-23] MEDS: ESCITALOPRAM OXALATE 10 MG TAB (LEXAPRO) PO SCH (07:48)
[2023-10-23] MEDS: CYANOCOBALAMIN 500 MCG TAB PO SCH (07:48)
[2023-10-23] MEDS: OMEPRAZOLE 20MG CAP PO SCH (07:49)
[2023-10-23] MEDS ORDERED: LORazepam 2 MG TAB PO PRN (09:20)
[2023-10-23] MEDS ORDERED: MAALOX 30 ML SUSP *UDC PO PRN (09:20)
[2023-10-23] MEDS ORDERED: MOM 30ML SUSPENSION UDC PO PRN (09:20)
[2023-10-23] MEDS: FOLIC ACID 1MG TAB PO SCH (09:37)
[2023-10-23] MEDS: THIAMINE 100 MG TAB PO SCH (09:37)
[2023-10-23] MEDS: MULTIVITAMINS/MINERALS THERAP 1 TAB PO SCH (09:37)
[2023-10-23] MEDS ORDERED: VENL75CA2 PO (09:44)
[2023-10-23] MEDS ORDERED: DOCU100C16 PO (09:44)
[2023-10-23] MEDS ORDERED: THERTAB21 PO (09:46)
[2023-10-23] MEDS ORDERED: HOME MED LIST COMPLETE! XX SCH (09:55)
[2023-10-23 11:55] VITALS: BP 108/61; TEMP 96.8; O2SAT 100
[2023-10-23 14:00] VITALS: BP 128/81
[2023-10-23 16:48] VITALS: BP 128/81; TEMP 97.5; O2SAT 99
[2023-10-23] MEDS: traZODone 50 MG TAB PO PRN (21:20)
[2023-10-24 06:00] VITALS: BP 154/78; TEMP 97.3; O2SAT 98
[2023-10-24 11:04] VITALS: BP 127/81
[2023-10-24] MEDS: ACAMPROSATE CALCIUM 333MG TABLET (CAMPRAL) PO SCH (11:08)
[2023-10-24] MEDS: ESCITALOPRAM OXALATE 10 MG TAB (LEXAPRO) PO SCH (11:08)
[2023-10-24] MEDS: DOCUSATE SODIUM 100MG CAPSULE PO SCH (11:08)
[2023-10-24] MEDS: VENLAFAXINE **XR** 75MG CAPSULE PO SCH (11:08)
[2023-10-24] MEDS: QUEtiapine FUMARATE 25 MG TAB PO SCH (11:08)
[2023-10-24] MEDS: VITAMIN D 1,000 INTERNATIONAL UNITS TABLET PO SCH (11:08)
[2023-10-24] MEDS: CYANOCOBALAMIN 500 MCG TAB PO SCH (11:09)
[2023-10-24] MEDS: ASCORBIC ACID 500 MG TAB PO SCH (11:09)
[2023-10-24 16:04] VITALS: BP 128/89; TEMP 97.7; O2SAT 96
[2023-10-24 17:17] VITALS: BP 134/77
[2023-10-25 00:22] VITALS: BP 116/83
[2023-10-25 06:14] VITALS: BP 117/59; TEMP 97; O2SAT 97
[2023-10-25 06:34] VITALS: BP 115/59
[2023-10-25] MEDS: METOPROLOL TART 25 MG TABLET PO SCH (08:25)
[2023-10-25] MEDS: hydroCHLOROthiazide 12.5 MG CAPSULE PO SCH (08:25)
[2023-10-25] MEDS ORDERED: MULTIVITAMINS/MINERALS THERAP 1 TAB PO SCH (09:00)
[2023-10-25 14:06] VITALS: BP_SYST 115; BP_SYST 118; BP_DIAS 59; BP_DIAS 62
[2023-10-25 16:32] VITALS: BP 118/62; TEMP 97.9; O2SAT 99
[2023-10-25 22:06] VITALS: BP 128/90
[2023-10-26 06:06] VITALS: BP 108/65
[2023-10-26 06:13] VITALS: BP 108/65; TEMP 97.5
[2023-10-26 06:24] VITALS: BP 108/65; TEMP 97.5
[2023-10-26] MEDS: NALTREXONE 50 MG TAB PO SCH (08:07)
[2023-10-26 14:00] VITALS: BP 122/71; TEMP 98.9; O2SAT 100
[2023-10-26 16:22] VITALS: BP 114/73; TEMP 97.7; O2SAT 100
[2023-10-26] MEDS: QUEtiapine FUMARATE 50MG TAB PO SCH (20:03)
[2023-10-27 06:18] VITALS: BP 128/84; TEMP 97.7; O2SAT 98
[2023-10-27 15:59] VITALS: BP 116/61; TEMP 98.5; O2SAT 97
[2023-10-27] MEDS: QUEtiapine FUMARATE 100 MG TAB PO SCH (20:15)
[2023-10-28 06:18] VITALS: BP 113/74; TEMP 99.1; O2SAT 100
[2023-10-28 08:35] VITALS: BP 113/74; TEMP 99.1; O2SAT 100
[2023-10-28] MEDS: QUEtiapine FUMARATE 50MG TAB PO SCH (08:48)
[2023-10-28 17:01] VITALS: BP 124/71; TEMP 97.2
[2023-10-29 06:35] VITALS: BP 122/72; TEMP 97.8; O2SAT 96
[2023-10-29 19:07] VITALS: BP 128/82; TEMP 97.8; O2SAT 100
[2023-10-29] MEDS: QUEtiapine FUMARATE 200 MG TAB PO SCH (20:10)
[2023-10-30 06:39] VITALS: BP 98/66; TEMP 98.2; O2SAT 97
[2023-10-30] MEDS: QUEtiapine FUMARATE 25 MG TAB PO SCH (08:11)
[2023-10-30] MEDS: IBUPROFEN 400MG TAB PO PRN (09:41)
[2023-10-30 19:02] VITALS: BP 113/68; TEMP 98.3
[2023-10-30] MEDS: ACETAMINOPHEN TAB 650MG DOSE (2X325MG) PO PRN (20:08)
[2023-10-31 06:08] VITALS: BP 116/71; TEMP 98; O2SAT 98
[2023-10-31 18:26] VITALS: BP 123/63; TEMP 98.8
[2023-11-01 06:42] VITALS: BP 124/71; TEMP 98.7
[2023-11-01 16:15] VITALS: BP 145/87; TEMP 98.1; O2SAT 100
[2023-11-02 06:34] VITALS: BP 99/59; TEMP 98.1; O2SAT 96
[2023-11-02 16:43] VITALS: BP 120/76; TEMP 98.7; O2SAT 97
[2023-11-02] MEDS: diphenhydrAMINE 25MG CAP PO PRN (20:10)
[2023-11-03 06:33] VITALS: BP 125/73; TEMP 98; O2SAT 97
[2023-11-03 16:57] VITALS: BP 105/66; TEMP 98.3; O2SAT 98
[2023-11-04 06:31] VITALS: BP 135/80; TEMP 97.6; O2SAT 99
[2023-11-04 08:29] VITALS: BP 117/73
[2023-11-04 18:11] VITALS: BP 106/62; TEMP 97.8; O2SAT 96
[2023-11-05 06:37] VITALS: BP 107/62; TEMP 97.9; O2SAT 97
[2023-11-05] MEDS ORDERED: LEXA1TAB2 PO (08:15)
[2023-11-05] MEDS ORDERED: NALT50TA4 PO (08:15)
[2023-11-05] MEDS ORDERED: ACAM0.05 PO (08:15)
[2023-11-05] MEDS ORDERED: QUET200T2 PO (08:16)
[2023-11-05] MEDS ORDERED: QUET1TAB17 PO (08:16)
[2023-11-05] MEDS ORDERED: VENL75CA47 PO (08:16)
[2023-11-05 08:20] VITALS: BP 118/81
[2023-11-05 08:24] VITALS: BP 118/81
== END 2023-11-05 12:35 | disposition home or self-care (01) | DRG 754 ==
LOC: M ED 19:43 → M ED INP 10-23 09:16 → M PSY 10-23 11:58
PROVIDERS: ADMIT Student in an Organized Health Care Education/Training Program; ATTEND Student in an Organized Health Care Education/Training Program
DX: F32.A Depression, unspecified (principal); R44.0 Auditory hallucinations; I10 Essential (primary) hypertension; F10.90 Alcohol use, unspecified, uncomplicated; F41.9 Anxiety disorder, unspecified; T44.7X4A Poisoning by beta-adrenoreceptor antagonists, undetermined, initial encounter; T43.214A Poisoning by selective serotonin and norepinephrine reuptake inhibitors, undetermined, initial encounter; F17.200 Nicotine dependence, unspecified, uncomplicated; Z63.5 Disruption of family by separation and divorce; Z91.51 Personal history of suicidal behavior; Z98.84 Bariatric surgery status; Z80.0 Family history of malignant neoplasm of digestive organs; Z81.1 Family history of alcohol abuse and dependence; Z79.899 Other long term (current) drug therapy; Z20.822 Contact with and (suspected) exposure to COVID-19

== ENCOUNTER 2023-11-06 11:15 | Emergency (ER) | payer OTHER ==
[~2023-11-06 11:15] MED LIST changes: +DOCU100C16 PO; +QUET200T2 PO; +THERTAB21 PO; +VENL75CA2 PO; +VENL75CA47 PO
[2023-11-06 11:44] VITALS: BP 166/91; TEMP 97.5; O2SAT 99
[2023-11-06 11:56] LABS: HEMATOCRIT 41.9 % (42.0-52.0); HEMOGLOBIN 14.8 g/dl (13.5-17.5); MEAN CORPUSCULAR HEMOGLOBIN 32.3 pg (27.0-33.0); MEAN CORPUSCULAR HGB CONC 35.3 g/dl (32.0-36.5); MEAN CORPUSCULAR VOLUME 91.5 fl (80.0-96.0); PLATELET COUNT, AUTOMATED 316 10^3/uL (150-450); RED BLOOD COUNT 4.58 10^6/uL (4.30-6.10); WHITE BLOOD COUNT 10.2 10^3/uL (4.0-10.0)
[2023-11-06 12:16] LABS: ETHYL ALCOHOL (ETHANOL) 0.216 % (0.000-0.010)
[2023-11-06 12:18] LABS: ALBUMIN 3.5 G/DL (3.2-5.2); ALKALINE PHOSPHATASE 65 U/L (46-116); ALT/SGPT 27 U/L (7.0-40); AST/SGOT 19 U/L (<34); BILIRUBIN,DIRECT 0.2 MG/DL (<0.4); BILIRUBIN,TOTAL 0.5 MG/DL (0.3-1.2); BLOOD UREA NITROGEN 7 MG/DL (9-23); CALCIUM LEVEL 7.8 MG/DL (8.5-10.1); CARBON DIOXIDE LEVEL 29 MMOL/L (20-31); CHLORIDE LEVEL 100 MMOL/L (98-107); CREATININE FOR GFR 0.73 MG/DL (0.70-1.30); GLOMERULAR FILTRATION RATE > 60.0 (>60); GLUCOSE, FASTING 78 MG/DL (60-100); POTASSIUM SERUM 3.7 MMOL/L (3.5-5.1); SALICYLATE LEVEL < 3.0 MG/DL (<30); SODIUM LEVEL 135 MMOL/L (136-145); TOTAL PROTEIN 6.3 G/DL (5.7-8.2)
[2023-11-06 12:20] LABS: THYROID STIMULATING HORMONE 1.034 uIU/ML (0.55-4.78)
[2023-11-06 12:26] LABS: AMPHETAMINES LEVEL URINE NEGATIVE (NEGATIVE); BARBITURATES URINE NEGATIVE (NEGATIVE); BENZODIAZEPINES URINE NEGATIVE (NEGATIVE); COCAINE METABOLITE URINE NEGATIVE (NEGATIVE); METHADONE URINE NEGATIVE (NEGATIVE); OPIATES URINE NEGATIVE (NEGATIVE)
[2023-11-06 12:27] LABS: CANNABINOIDS URINE NEGATIVE (NEGATIVE); PHENCYCLIDINE URINE NEGATIVE (NEGATIVE)
== END 2023-11-06 18:11 | disposition home or self-care (01) ==
LOC: M ED 11:15
DX: F32.A Depression, unspecified (principal); I10 Essential (primary) hypertension; F10.10 Alcohol abuse, uncomplicated; Z79.899 Other long term (current) drug therapy; Z79.810 Long term (current) use of selective estrogen receptor modulators (SERMs)

== ENCOUNTER 2023-11-07 19:33 | Inpatient (IN) | payer OTHER ==
[~2023-11-07] VITALS: Ht 170.2 cm; Wt 111.1 kg
[2023-11-07 20:08] LABS: BASO # 0.1 10^3/uL (0.0-0.2); BASO % 1.1 % (0.0-1.0); EOS # 0.1 10^3/uL (0.0-0.5); EOS % 1.8 % (0.0-3.0); HEMOGLOBIN 14.1 g/dl (13.5-17.5); LYMPH # 2.5 10^3/uL (1.5-5.0); LYMPH % 34.2 % (24.0-44.0); MEAN CORPUSCULAR HEMOGLOBIN 31.9 pg (27.0-33.0); MEAN CORPUSCULAR HGB CONC 35.3 g/dl (32.0-36.5); MEAN CORPUSCULAR VOLUME 90.5 fl (80.0-96.0); MONO # 0.7 10^3/uL (0.0-0.8); NEUTROPHILS % 53.6 % (36.0-66.0); PLATELET COUNT, AUTOMATED 286 10^3/uL (150-450); RED BLOOD COUNT 4.42 10^6/uL (4.30-6.10); WHITE BLOOD COUNT 7.4 10^3/uL (4.0-10.0)
[2023-11-07] MEDS: NS 1,000 ML IV ONE ×2 (20:08→20:50)
[2023-11-07 20:34] LABS: CPK CREATINE PHOSPHOKINASE 75 U/L (46-171)
[2023-11-07 20:35] LABS: SALICYLATE LEVEL < 3.0 MG/DL (<30)
[2023-11-07 20:41] LABS: ALKALINE PHOSPHATASE 60 U/L (46-116); ALT/SGPT 23 U/L (7.0-40); AST/SGOT 15 U/L (<34); BILIRUBIN,DIRECT 0.1 MG/DL (<0.4); BILIRUBIN,TOTAL 0.3 MG/DL (0.3-1.2); BLOOD UREA NITROGEN 8 MG/DL (9-23); CALCIUM LEVEL 7.3 MG/DL (8.5-10.1); CARBON DIOXIDE LEVEL 25 MMOL/L (20-31); CHLORIDE LEVEL 108 MMOL/L (98-107); CREATININE FOR GFR 0.89 MG/DL (0.70-1.30); GLOMERULAR FILTRATION RATE > 60.0 (>60); GLUCOSE, FASTING 94 MG/DL (60-100); POTASSIUM SERUM 3.1 MMOL/L (3.5-5.1); SODIUM LEVEL 142 MMOL/L (136-145); TOTAL PROTEIN 5.7 G/DL (5.7-8.2)
[2023-11-07] MEDS: LIDOCAINE 2% 5ML JELLY UROJET TOP ONE (20:50)
[2023-11-07 21:34] LABS: AMPHETAMINES LEVEL URINE NEGATIVE (NEGATIVE); BARBITURATES URINE NEGATIVE (NEGATIVE); BENZODIAZEPINES URINE NEGATIVE (NEGATIVE); CANNABINOIDS URINE NEGATIVE (NEGATIVE); COCAINE METABOLITE URINE NEGATIVE (NEGATIVE); METHADONE URINE NEGATIVE (NEGATIVE); OPIATES URINE NEGATIVE (NEGATIVE); PHENCYCLIDINE URINE NEGATIVE (NEGATIVE)
[2023-11-07] MEDS: NS IV ONE (22:45)
[2023-11-07] MEDS ORDERED: ISOVUE-370 76% 100ML VIAL As Ordered ONE (22:48)
[2023-11-07] MEDS: cefTRIAXone SOD 2 GM in D5W MINI-BAG PLUS 50 ML IV ONE (23:18)
[2023-11-08 01:18] LABS: APPEARANCE, URINE CLEAR (CLEAR); BACTERIA, URINE AUTO NEGATIVE (NEGATIVE); BILIRUBIN, URINE AUTO NEGATIVE (NEGATIVE); BLOOD, URINE BLOOD 1+ (NEGATIVE); COLOR, URINE STRAW (YELLOW); GLUCOSE, URINE (UA) AUTO NEGATIVE (NEGATIVE); KETONE, URINE AUTO NEGATIVE (NEGATIVE); LEUKOCYTE ESTERASE, URINE AUTO NEGATIVE (NEGATIVE); NITRITE, URINE AUTO NEGATIVE (NEGATIVE); PROTEIN, URINE AUTO NEGATIVE (NEGATIVE); RBC, URINE AUTO 1 /HPF (0-3); SPECIFIC GRAVITY URINE AUTO 1.028 (1.002-1.035); SQUAMOUS EPITHELIAL CELL UR AU 0 /HPF (0-6); UROBILINOGEN, URINE AUTO 0.2 mg/dL (0.0-2.0); WBC, URINE AUTO 2 /HPF (0-3)
[2023-11-08] MEDS: KCL 10MEQ/100ML SWI (KRUN) 10 MEQ in IV 1 EA IV SCH (01:50)
[2023-11-08] MEDS ORDERED: QUET200T2 PO (02:05)
[2023-11-08] MEDS ORDERED: HOME MED LIST COMPLETE! XX SCH (02:10)
[2023-11-08 07:09] LABS: BLOOD UREA NITROGEN 5 MG/DL (9-23); CALCIUM LEVEL 7.1 MG/DL (8.5-10.1); CARBON DIOXIDE LEVEL 23 MMOL/L (20-31); CHLORIDE LEVEL 111 MMOL/L (98-107); CREATININE FOR GFR 0.67 MG/DL (0.70-1.30); GLOMERULAR FILTRATION RATE > 60.0 (>60); GLUCOSE, FASTING 67 MG/DL (60-100); MAGNESIUM LEVEL 1.7 MG/DL (1.8-2.4); POTASSIUM SERUM 3.3 MMOL/L (3.5-5.1); SODIUM LEVEL 142 MMOL/L (136-145)
[2023-11-08] MEDS ORDERED: LORazepam 2 MG TAB PO PRN (10:40)
[2023-11-08] MEDS ORDERED: POTASSIUM CHLORIDE 10MEQ SR TABLET PO SCH (10:45)
[2023-11-08] MEDS: THIAMINE 100 MG TAB PO SCH (11:24)
[2023-11-08] MEDS: ESCITALOPRAM OXALATE 10 MG TAB (LEXAPRO) PO SCH (11:24)
[2023-11-08] MEDS: DOCUSATE SODIUM 100MG CAPSULE PO SCH (11:25)
[2023-11-08] MEDS: MULTIVITAMINS/MINERALS THERAP 1 TAB PO SCH (11:25)
[2023-11-08] MEDS: OMEPRAZOLE 20MG CAP PO SCH (11:25)
[2023-11-08] MEDS: CYANOCOBALAMIN 500 MCG TAB PO SCH (11:25)
[2023-11-08] MEDS: ASCORBIC ACID 500 MG TAB PO SCH (11:25)
[2023-11-08] MEDS: FOLIC ACID 1MG TAB PO SCH (11:25)
[2023-11-08] MEDS: MAG SULF 1GM/100ML (MAG RUN) 1 GM in IV 1 EA IV SCH (11:26)
[2023-11-08] MEDS: VITAMIN D 1,000 INTERNATIONAL UNITS TABLET PO SCH (12:06)
[2023-11-08] MEDS: VENLAFAXINE **XR** 75MG CAPSULE PO SCH (12:06)
[2023-11-08] MEDS: ENOXAPARIN 40MG/0.4ML SYRINGE (J1650 PER 10MG) SC SCH (13:30)
[2023-11-08] MEDS: NALTREXONE 50 MG TAB PO SCH (13:44)
[2023-11-08] MEDS: ACAMPROSATE CALCIUM 333MG TABLET (CAMPRAL) PO SCH (13:44)
[2023-11-08] MEDS ORDERED: cefTRIAXone SOD 1 GM in D5W MINI-BAG PLUS 50 ML IV SCH (23:00)
[2023-11-09 01:30] VITALS: BP 119/70; TEMP 97.6; O2SAT 97
[2023-11-09 02:22] LABS: BLOOD UREA NITROGEN < 5 MG/DL (9-23); CALCIUM LEVEL 7.8 MG/DL (8.5-10.1); CARBON DIOXIDE LEVEL 30 MMOL/L (20-31); CHLORIDE LEVEL 110 MMOL/L (98-107); GLOMERULAR FILTRATION RATE > 60.0 (>60); GLUCOSE, FASTING 96 MG/DL (60-100); MAGNESIUM LEVEL 2.1 MG/DL (1.8-2.4); POTASSIUM SERUM 3.8 MMOL/L (3.5-5.1); SODIUM LEVEL 142 MMOL/L (136-145)
[2023-11-09] MEDS ORDERED: QUEtiapine FUMARATE 25 MG TAB PO SCH (09:00)
[2023-11-09] MEDS ORDERED: QUEtiapine FUMARATE 200 MG TAB PO SCH (21:00)
== END 2023-11-09 12:18 | DRG 812 ==
LOC: M ED 19:33 → UNDOADMIN 11-08 03:40 → M ED INP 11-08 03:40
PROVIDERS: ADMIT Internal Medicine; ATTEND Internal Medicine
DX: T44.7X2A Poisoning by beta-adrenoreceptor antagonists, intentional self-harm, initial encounter (principal); E87.20 Acidosis, unspecified; I95.2 Hypotension due to drugs; N30.90 Cystitis, unspecified without hematuria; E87.6 Hypokalemia; F10.129 Alcohol abuse with intoxication, unspecified; T50.2X2A Poisoning by carbonic-anhydrase inhibitors, benzothiadiazides and other diuretics, intentional self-harm, initial encounter; F10.14 Alcohol abuse with alcohol-induced mood disorder; F32.A Depression, unspecified; I10 Essential (primary) hypertension; Z98.84 Bariatric surgery status; Z79.899 Other long term (current) drug therapy; Z63.5 Disruption of family by separation and divorce

== ENCOUNTER 2023-11-09 01:30 | Inpatient (IN) | payer OTHER ==
[~2023-11-09] VITALS: Ht 172.7 cm; Wt 111.5 kg
[2023-11-09] MEDS ORDERED: MAALOX 30 ML SUSP *UDC PO PRN (01:35)
[2023-11-09] MEDS ORDERED: MOM 30ML SUSPENSION UDC PO PRN (01:35)
[2023-11-09] MEDS ORDERED: diphenhydrAMINE 25MG CAP PO PRN (01:35)
[2023-11-09 03:02] VITALS: BP 135/87; TEMP 97.8; O2SAT 99
[2023-11-09 06:38] VITALS: BP 148/81; TEMP 99; O2SAT 99
[2023-11-09 16:27] VITALS: BP 126/86; TEMP 98.9; O2SAT 98
[2023-11-09] MEDS: traZODone 50 MG TAB PO PRN (20:05)
[2023-11-10 06:26] VITALS: BP 130/79; TEMP 98.1; O2SAT 98
[2023-11-10] MEDS: NALTREXONE 50 MG TAB PO SCH (08:21)
[2023-11-10] MEDS: ESCITALOPRAM OXALATE 10 MG TAB (LEXAPRO) PO SCH (08:21)
[2023-11-10 08:26] VITALS: BP 130/79; TEMP 98.1; O2SAT 98
[2023-11-10 15:22] VITALS: BP 122/81; TEMP 97.8; O2SAT 98
[2023-11-11 06:23] VITALS: BP 114/63; TEMP 97.9; O2SAT 98
[2023-11-11 09:48] VITALS: BP 114/63; TEMP 97.9; O2SAT 98
[2023-11-11] MEDS ORDERED: CYAN-1 PO (13:48)
[2023-11-11] MEDS ORDERED: MULT-40 PO (13:48)
[2023-11-11] MEDS ORDERED: RA B2500 PO (13:48)
[2023-11-11] MEDS ORDERED: DOCU100C17 PO (13:48)
[2023-11-11] MEDS ORDERED: HOME MED LIST COMPLETE! XX SCH (13:50)
[2023-11-11 18:28] VITALS: BP 148/96; TEMP 97.9; O2SAT 97
[2023-11-11 18:52] VITALS: BP 132/86
[2023-11-11] MEDS: IBUPROFEN 400MG TAB PO PRN (21:00)
[2023-11-12 06:14] VITALS: BP 97/52; TEMP 98.2; O2SAT 97
[2023-11-12] MEDS: ACETAMINOPHEN TAB 650MG DOSE (2X325MG) PO PRN (08:27)
[2023-11-12 08:30] VITALS: BP 128/80
[2023-11-12 18:42] VITALS: BP 136/89; TEMP 98; O2SAT 98
[2023-11-13 06:43] VITALS: BP 123/70; TEMP 98.8; O2SAT 98
[2023-11-13] MEDS: QUEtiapine FUMARATE 50MG TAB PO SCH (08:44)
[2023-11-13] MEDS: hydroCHLOROthiazide 12.5 MG CAPSULE PO SCH (09:57)
[2023-11-13] MEDS: VITAMIN D 1,000 INTERNATIONAL UNITS TABLET PO SCH (09:58)
[2023-11-13] MEDS: DOCUSATE SODIUM 100MG CAPSULE PO SCH (09:58)
[2023-11-13] MEDS: ASCORBIC ACID 500 MG TAB PO SCH (09:58)
[2023-11-13] MEDS: CYANOCOBALAMIN 500 MCG TAB PO SCH (09:58)
[2023-11-13] MEDS: ACAMPROSATE CALCIUM 333MG TABLET (CAMPRAL) PO SCH (09:58)
[2023-11-13] MEDS: MULTIVITAMINS/MINERALS THERAP 1 TAB PO SCH (09:58)
[2023-11-13] MEDS: METOPROLOL TART 25 MG TABLET PO SCH (10:00)
[2023-11-13 18:18] VITALS: BP 112/70; TEMP 99.6
[2023-11-14 06:38] VITALS: BP 115/67; TEMP 98.5; O2SAT 98
[2023-11-14 17:55] VITALS: BP 138/77; TEMP 98.1; O2SAT 97
[2023-11-15 06:17] VITALS: BP 112/69; TEMP 97.2; O2SAT 98
[2023-11-15] MEDS ORDERED: PILL CUTTER 1 EACH XX PRN (08:50)
[2023-11-15 16:13] VITALS: BP 110/70; TEMP 98.2; O2SAT 99
[2023-11-15 16:20] VITALS: BP 110/70; TEMP 98.2; O2SAT 99
[2023-11-16 06:39] VITALS: BP 106/59; TEMP 97.7; O2SAT 96
[2023-11-16] MEDS: VITAMIN D 1,000 INTERNATIONAL UNITS TABLET PO SCH (08:16)
[2023-11-16 16:08] VITALS: BP 117/63; TEMP 98.1; O2SAT 100
[2023-11-16 16:12] VITALS: BP 116/65; TEMP 97.9; O2SAT 98
[2023-11-17 06:25] VITALS: BP 106/59; TEMP 97.5; O2SAT 100
[2023-11-17 16:02] VITALS: BP 132/82; TEMP 98.4; O2SAT 99
[2023-11-18 06:20] VITALS: BP 110/59; TEMP 97.9; O2SAT 97
[2023-11-18 17:06] VITALS: BP 131/85; TEMP 98.3; O2SAT 98
[2023-11-19 06:12] VITALS: BP 101/56; TEMP 97.9; O2SAT 98
[2023-11-19 16:47] VITALS: BP 141/89; TEMP 97.4; O2SAT 100
[2023-11-20 06:28] VITALS: BP 102/56; TEMP 97.9; O2SAT 97
[2023-11-20 08:26] VITALS: BP 136/79
[2023-11-20] MEDS: ACAMPROSATE CALCIUM 333MG TABLET (CAMPRAL) PO SCH (08:31)
[2023-11-20] MEDS: hydrOXYzine 50 MG TAB PO STA (16:02)
[2023-11-20 16:11] VITALS: BP 119/91; TEMP 97.1; O2SAT 98
[2023-11-21 06:17] VITALS: BP 110/52; TEMP 97.8; O2SAT 97
[2023-11-21 08:23] VITALS: BP 156/85
[2023-11-21] MEDS ORDERED: VITAD1000T PO (10:53)
[2023-11-21] MEDS ORDERED: ASCO50TA PO (10:53)
[2023-11-21] MEDS ORDERED: LEXA1TAB PO (10:53)
[2023-11-21] MEDS ORDERED: COLA100C5 PO (10:53)
[2023-11-21] MEDS ORDERED: VITA500T40 PO (10:53)
[2023-11-21] MEDS ORDERED: MULT-40 PO (10:53)
[2023-11-21] MEDS ORDERED: METO50TA9 PO (10:53)
[2023-11-21] MEDS ORDERED: QUET50TA4 PO (10:53)
== END 2023-11-21 13:03 | disposition home or self-care (01) | DRG 754 ==
LOC: M ED INP 01:34 → M PSY 02:44
PROVIDERS: ADMIT Student in an Organized Health Care Education/Training Program; ATTEND Student in an Organized Health Care Education/Training Program
DX: F32.A Depression, unspecified (principal); I10 Essential (primary) hypertension; F10.14 Alcohol abuse with alcohol-induced mood disorder; Z91.51 Personal history of suicidal behavior; F60.89 Other specific personality disorders; Z63.5 Disruption of family by separation and divorce; Z79.899 Other long term (current) drug therapy

== ENCOUNTER 2023-12-07 19:41 | Observation (INO) | payer MEDICAID, OTHER ==
[~2023-12-07] VITALS: Ht 170.2 cm; Wt 101.1 kg
[~2023-12-07 19:41] MED LIST changes: +ASCO50TA PO; +COLA100C5 PO; +CYAN-1 PO; +LEXA1TAB PO; +MULT-40 PO; +QUET50TA4 PO; +RA B2500 PO; +VITAD1000T PO
[2023-12-07] MEDS: NS 1,000 ML IV ONE ×2 (20:26→22:45)
[2023-12-07 20:37] LABS: BASO # 0.1 10^3/uL (0.0-0.2); BASO % 0.9 % (0.0-1.0); EOS # 0.1 10^3/uL (0.0-0.5); EOS % 1.7 % (0.0-3.0); HEMATOCRIT 38.1 % (42.0-52.0); HEMOGLOBIN 13.8 g/dl (13.5-17.5); LYMPH # 2.8 10^3/uL (1.5-5.0); LYMPH % 37.2 % (24.0-44.0); MEAN CORPUSCULAR HEMOGLOBIN 32.1 pg (27.0-33.0); MEAN CORPUSCULAR HGB CONC 36.2 g/dl (32.0-36.5); MEAN CORPUSCULAR VOLUME 88.6 fl (80.0-96.0); MONO # 0.7 10^3/uL (0.0-0.8); MONO % 9.1 % (2.0-8.0); NEUTROPHILS # 3.8 10^3/uL (1.5-8.5); NEUTROPHILS % 50.8 % (36.0-66.0); PLATELET COUNT, AUTOMATED 260 10^3/uL (150-450); WHITE BLOOD COUNT 7.5 10^3/uL (4.0-10.0)
[2023-12-07 20:59] LABS: AMPHETAMINES LEVEL URINE NEGATIVE (NEGATIVE); BENZODIAZEPINES URINE NEGATIVE (NEGATIVE)
[2023-12-07 21:00] LABS: BARBITURATES URINE NEGATIVE (NEGATIVE); CANNABINOIDS URINE NEGATIVE (NEGATIVE); COCAINE METABOLITE URINE NEGATIVE (NEGATIVE); METHADONE URINE NEGATIVE (NEGATIVE); OPIATES URINE NEGATIVE (NEGATIVE); PHENCYCLIDINE URINE NEGATIVE (NEGATIVE)
[2023-12-07 21:02] LABS: ETHYL ALCOHOL (ETHANOL) 0.184 % (0.000-0.010)
[2023-12-07 21:03] LABS: BLOOD UREA NITROGEN 8 MG/DL (9-23); CALCIUM LEVEL 7.2 MG/DL (8.5-10.1); CARBON DIOXIDE LEVEL 23 MMOL/L (20-31); CHLORIDE LEVEL 104 MMOL/L (98-107); CREATININE FOR GFR 0.68 MG/DL (0.70-1.30); GLOMERULAR FILTRATION RATE > 60.0 (>60); GLUCOSE, FASTING 91 MG/DL (60-100); POTASSIUM SERUM 3.2 MMOL/L (3.5-5.1); SALICYLATE LEVEL < 3.0 MG/DL (<30); SODIUM LEVEL 136 MMOL/L (136-145)
[2023-12-07 21:04] LABS: ALBUMIN 3.2 G/DL (3.2-5.2); ALKALINE PHOSPHATASE 66 U/L (46-116); ALT/SGPT 17 U/L (7.0-40); AST/SGOT 15 U/L (<34); BILIRUBIN,DIRECT 0.1 MG/DL (<0.4); BILIRUBIN,TOTAL 0.3 MG/DL (0.3-1.2); CPK CREATINE PHOSPHOKINASE 67 U/L (46-171); TOTAL PROTEIN 5.7 G/DL (5.7-8.2)
[2023-12-07 21:18] LABS: THYROID STIMULATING HORMONE 1.228 uIU/ML (0.55-4.78)
[2023-12-07 22:40] LABS: RSV AMPLIFICATION NEGATIVE (NEGATIVE)
[2023-12-07] MEDS ORDERED: VENL75CA47 PO (23:01)
[2023-12-07] MEDS ORDERED: QUET50TA4 PO (23:01)
[2023-12-07] MEDS ORDERED: THERTAB52 PO (23:01)
[2023-12-07] MEDS ORDERED: HOME MED LIST COMPLETE! XX SCH (23:05)
[2023-12-08] MEDS ORDERED: MED REC IN PROGRESS XX SCH (09:40)
[2023-12-08] MEDS ORDERED: LORazepam 2 MG TAB PO PRN (13:30)
[2023-12-08] MEDS: POTASSIUM CHLORIDE 10MEQ SR TABLET PO ONE (13:47)
[2023-12-08 14:45] VITALS: BP 145/81; TEMP 98.1; O2SAT 98
[2023-12-08 14:50] VITALS: BP 145/81
[2023-12-08 14:58] LABS: MAGNESIUM LEVEL 1.8 MG/DL (1.8-2.4)
[2023-12-08 19:58] VITALS: BP 140/78; TEMP 98.1; O2SAT 96
[2023-12-08] MEDS: THIAMINE 100 MG TAB PO SCH (21:07)
[2023-12-08 21:08] VITALS: BP 131/80
[2023-12-08 21:10] VITALS: BP 131/80; TEMP 97.9; O2SAT 97
[2023-12-09 04:16] VITALS: BP 120/68
[2023-12-09 05:39] VITALS: BP 121/77; TEMP 97.9; O2SAT 98
[2023-12-09 06:04] LABS: HEMATOCRIT 39.7 % (42.0-52.0); HEMOGLOBIN 13.8 g/dl (13.5-17.5); MEAN CORPUSCULAR HEMOGLOBIN 31.2 pg (27.0-33.0); MEAN CORPUSCULAR HGB CONC 34.8 g/dl (32.0-36.5); MEAN CORPUSCULAR VOLUME 89.8 fl (80.0-96.0); PLATELET COUNT, AUTOMATED 205 10^3/uL (150-450); RED BLOOD COUNT 4.42 10^6/uL (4.30-6.10); WHITE BLOOD COUNT 6.1 10^3/uL (4.0-10.0)
[2023-12-09 06:35] LABS: ALKALINE PHOSPHATASE 63 U/L (46-116); ALT/SGPT 13 U/L (7.0-40); AST/SGOT 11 U/L (<34); BILIRUBIN,TOTAL 0.7 MG/DL (0.3-1.2); BLOOD UREA NITROGEN 10 MG/DL (9-23); CALCIUM LEVEL 8.2 MG/DL (8.5-10.1); CARBON DIOXIDE LEVEL 28 MMOL/L (20-31); CHLORIDE LEVEL 109 MMOL/L (98-107); CREATININE FOR GFR 0.72 MG/DL (0.70-1.30); GLOMERULAR FILTRATION RATE > 60.0 (>60); GLUCOSE, FASTING 87 MG/DL (60-100); MAGNESIUM LEVEL 1.9 MG/DL (1.8-2.4); POTASSIUM SERUM 3.2 MMOL/L (3.5-5.1); SODIUM LEVEL 143 MMOL/L (136-145); TOTAL PROTEIN 5.4 G/DL (5.7-8.2)
[2023-12-09] MEDS: MULTIVITAMINS/MINERALS THERAP 1 TAB PO SCH (08:48)
[2023-12-09] MEDS: FOLIC ACID 1MG TAB PO SCH (08:48)
[2023-12-09] MEDS: POTASSIUM CHLORIDE 10MEQ SR TABLET PO ONE (08:49)
[2023-12-09] MEDS: ENOXAPARIN 40MG/0.4ML SYRINGE (J1650 PER 10MG) SC SCH (08:49)
[2023-12-09 14:00] VITALS: BP 127/81; TEMP 97.9; O2SAT 97
[2023-12-09 20:40] VITALS: BP 133/80; TEMP 97.9; O2SAT 100
[2023-12-10 05:54] VITALS: BP 103/59; TEMP 97.7; O2SAT 98
[2023-12-10 08:00] VITALS: BP 100/60
[2023-12-10 08:38] VITALS: BP 100/60
[2023-12-10] MEDS: VENLAFAXINE **XR** 75MG CAPSULE PO SCH (12:23)
[2023-12-10] MEDS: QUEtiapine FUMARATE 50MG TAB PO SCH (12:23)
[2023-12-10] MEDS: ESCITALOPRAM OXALATE 10 MG TAB (LEXAPRO) PO SCH (12:23)
[2023-12-10 13:10] LABS: BLOOD UREA NITROGEN 7 MG/DL (9-23); CALCIUM LEVEL 8.5 MG/DL (8.5-10.1); CARBON DIOXIDE LEVEL 33 MMOL/L (20-31); CHLORIDE LEVEL 104 MMOL/L (98-107); CREATININE FOR GFR 0.67 MG/DL (0.70-1.30); GLOMERULAR FILTRATION RATE > 60.0 (>60); GLUCOSE, FASTING 112 MG/DL (60-100); MAGNESIUM LEVEL 1.9 MG/DL (1.8-2.4); SODIUM LEVEL 140 MMOL/L (136-145)
[2023-12-10 14:00] VITALS: BP 110/69; TEMP 97.9; O2SAT 99
[2023-12-10 21:15] VITALS: BP 125/72; TEMP 97.9; O2SAT 98
[2023-12-11 06:13] VITALS: BP 120/75; TEMP 97.7
[2023-12-11 06:30] LABS: HEMOGLOBIN 13.7 g/dl (13.5-17.5); MEAN CORPUSCULAR HGB CONC 34.3 g/dl (32.0-36.5); MEAN CORPUSCULAR VOLUME 90.5 fl (80.0-96.0); PLATELET COUNT, AUTOMATED 191 10^3/uL (150-450); RED BLOOD COUNT 4.42 10^6/uL (4.30-6.10); WHITE BLOOD COUNT 6.6 10^3/uL (4.0-10.0)
[2023-12-11 14:00] VITALS: BP 105/60; TEMP 97.9; O2SAT 97
[2023-12-12] MEDS ORDERED: VITA500C24 PO (08:28)
[2023-12-12] MEDS ORDERED: MM S100C PO (08:31)
[2023-12-12] MEDS ORDERED: VITA500T41 PO (08:32)
== END 2023-12-11 20:57 ==
LOC: EDBD 19:41 → M ED 19:41 → M ED INP 19:42 → ENRESERV 12-08 14:21 → M MSPAV 12-08 14:45
PROVIDERS: ADMIT Internal Medicine; ATTEND Internal Medicine
DX: T14.91XA Suicide attempt, initial encounter (principal); T44.7X2A Poisoning by beta-adrenoreceptor antagonists, intentional self-harm, initial encounter; T43.502A Poisoning by unspecified antipsychotics and neuroleptics, intentional self-harm, initial encounter; T51.0X2A Toxic effect of ethanol, intentional self-harm, initial encounter; Y92.89 Other specified places as the place of occurrence of the external cause; R00.1 Bradycardia, unspecified; F32.A Depression, unspecified; Z91.51 Personal history of suicidal behavior; E87.6 Hypokalemia; I10 Essential (primary) hypertension; F10.120 Alcohol abuse with intoxication, uncomplicated; Z98.84 Bariatric surgery status; Z79.899 Other long term (current) drug therapy
CPT/HCPCS: 36415; 80048; 80053; 80076; 80143; 80307; 82077; 82550; 83735; 84443; 85025; 85027; 87631; 93005; 93041; 94760; 96360; 96361; 96372; 99285; J1650

== ENCOUNTER 2023-12-11 20:15 | Inpatient (IN) | payer OTHER ==
[~2023-12-11] VITALS: Ht 172.7 cm; Wt 112.9 kg
[~2023-12-11 20:15] MED LIST changes: +THERTAB52 PO
[2023-12-11] MEDS ORDERED: LORazepam 2 MG TAB PO PRN (21:00)
[2023-12-11] MEDS ORDERED: MOM 30ML SUSPENSION UDC PO PRN (21:00)
[2023-12-11] MEDS ORDERED: MAALOX 30 ML SUSP *UDC PO PRN (21:00)
[2023-12-11] MEDS ORDERED: ACETAMINOPHEN TAB 650MG DOSE (2X325MG) PO PRN (21:00)
[2023-12-11 21:33] VITALS: BP 115/82; TEMP 98.5; O2SAT 97
[2023-12-11] MEDS: traZODone 50 MG TAB PO PRN (21:48)
[2023-12-11] MEDS: THIAMINE 100 MG TAB PO SCH (21:48)
[2023-12-11 22:00] VITALS: BP 115/82
[2023-12-12 06:00] VITALS: BP 115/69
[2023-12-12 06:26] VITALS: BP 115/69; TEMP 97.5
[2023-12-12] MEDS: VENLAFAXINE **XR** 75MG CAPSULE PO SCH (08:02)
[2023-12-12] MEDS: MULTIVITAMINS/MINERALS THERAP 1 TAB PO SCH (08:02)
[2023-12-12] MEDS: FOLIC ACID 1MG TAB PO SCH (08:02)
[2023-12-12] MEDS: NICOTINE 21MG/24HR 1 EA TRANSDERMAL TD SCH (08:05)
[2023-12-12] MEDS ORDERED: VITA500C24 PO (08:28)
[2023-12-12] MEDS ORDERED: MM S100C PO (08:31)
[2023-12-12] MEDS ORDERED: VITA500T41 PO (08:32)
[2023-12-12] MEDS ORDERED: HOME MED LIST COMPLETE! XX SCH (08:35)
[2023-12-12] MEDS: INFLUENZA QUADRIVALENT PF VACCINE 0.5ML SYRINGE IM.IMMUN ONE (09:09)
[2023-12-12 15:35] VITALS: BP 133/82; TEMP 98.3
[2023-12-12 21:25] VITALS: BP 98/54
[2023-12-13 06:00] VITALS: BP 98/54
[2023-12-13 06:04] VITALS: BP 98/54; TEMP 97.4
[2023-12-13] MEDS ORDERED: VENLAFAXINE **XR** 75MG CAPSULE PO SCH (09:00)
[2023-12-13] MEDS: ASCORBIC ACID 500 MG TAB PO SCH (09:05)
[2023-12-13] MEDS: ACAMPROSATE CALCIUM 333MG TABLET (CAMPRAL) PO SCH (09:05)
[2023-12-13] MEDS: CYANOCOBALAMIN 500 MCG TAB PO SCH (09:05)
[2023-12-13] MEDS: DOCUSATE SODIUM 100MG CAPSULE PO SCH (09:05)
[2023-12-13] MEDS: TUBERCULIN PPD 5 UNITS/0.1 ML ID ONE (11:33)
[2023-12-13] MEDS: diphenhydrAMINE 25MG CAP PO PRN (12:43)
[2023-12-13 14:00] VITALS: BP 137/72
[2023-12-13 15:10] VITALS: BP 137/72; TEMP 98; O2SAT 98
[2023-12-14 06:42] VITALS: BP 123/59; TEMP 97.8; O2SAT 98
[2023-12-14 07:15] VITALS: BP 123/59
[2023-12-14] MEDS: IBUPROFEN 400MG TAB PO PRN (08:27)
[2023-12-14] MEDS: NALTREXONE 50 MG TAB PO SCH (11:24)
[2023-12-14 15:15] VITALS: BP 128/76
[2023-12-14] MEDS: ACAMPROSATE CALCIUM 333MG TABLET (CAMPRAL) PO SCH (16:36)
[2023-12-14 18:02] VITALS: BP 128/76; TEMP 97.8; O2SAT 97
[2023-12-15 06:30] VITALS: BP 125/81; TEMP 98.2; O2SAT 97
[2023-12-15] MEDS: PPD DOCUMENTATION ENTRY MISC XX SCH (10:00)
[2023-12-15 17:08] VITALS: BP 123/78; TEMP 98; O2SAT 97
[2023-12-16 06:28] VITALS: BP 144/82; TEMP 97.7; O2SAT 98
[2023-12-16 18:46] VITALS: BP 120/77; TEMP 97.2; O2SAT 99
[2023-12-17 06:20] VITALS: BP 101/55; TEMP 97.7; O2SAT 98
[2023-12-17] MEDS: ACAMPROSATE CALCIUM 333MG TABLET (CAMPRAL) PO SCH (15:43)
[2023-12-17 16:16] VITALS: BP 116/74; TEMP 97.9
[2023-12-18 06:23] VITALS: BP 105/58; TEMP 98.4; O2SAT 99
[2023-12-18 17:27] VITALS: BP 136/71; TEMP 97.5
[2023-12-19 06:25] VITALS: BP 117/88; TEMP 98.5; O2SAT 98
[2023-12-19 17:33] VITALS: BP 128/90; TEMP 97.7; O2SAT 97
[2023-12-20 06:19] VITALS: BP 134/73; TEMP 98.3; O2SAT 100
[2023-12-20 16:18] VITALS: BP 118/73; TEMP 98.3; O2SAT 98
[2023-12-21 06:13] VITALS: BP 121/83; TEMP 97.6; O2SAT 99
[2023-12-21 15:12] VITALS: BP 115/78; TEMP 97.8; O2SAT 100
[2023-12-21] MEDS: metFORMIN XR 500MG TAB *GLUCOPHAGE XR PO SCH (17:03)
[2023-12-22 06:29] VITALS: BP 110/60; TEMP 97.8
[2023-12-22 15:58] VITALS: BP 131/85; TEMP 97.8; O2SAT 99
[2023-12-23 06:35] VITALS: BP 127/82; TEMP 98; O2SAT 98
[2023-12-23 16:38] VITALS: BP 115/70; TEMP 98.1; O2SAT 97
[2023-12-24 06:08] VITALS: BP 116/85; TEMP 97.3
[2023-12-24 15:58] VITALS: BP 126/80; TEMP 98.4
[2023-12-25 06:50] VITALS: BP 146/83; TEMP 97.6; O2SAT 100
[2023-12-25 18:15] VITALS: BP 139/84; TEMP 97.5
[2023-12-26 06:21] VITALS: BP 118/80; TEMP 97.3; O2SAT 99
[2023-12-26 16:55] VITALS: BP 127/86; TEMP 96.8; O2SAT 99
[2023-12-27 06:02] VITALS: BP 105/66; TEMP 97.7; O2SAT 97
[2023-12-27 16:26] VITALS: BP 129/72; TEMP 98.1; O2SAT 98
[2023-12-28 06:31] VITALS: BP 132/75; TEMP 97.6; O2SAT 99
[2023-12-28 16:00] VITALS: BP 137/77; TEMP 98; O2SAT 100
[2023-12-29 06:29] VITALS: BP 119/82; TEMP 97.4; O2SAT 95
[2023-12-29 16:18] VITALS: BP 131/77; TEMP 98.3; O2SAT 98
[2023-12-29 19:58] VITALS: BP 122/71
[2023-12-30 06:03] VITALS: BP 133/86; TEMP 97.3; O2SAT 99
[2023-12-30 18:08] VITALS: BP 120/80; TEMP 97.5
[2023-12-31 06:07] VITALS: BP 121/78; TEMP 97.2; O2SAT 99
[2023-12-31 18:26] VITALS: BP 130/83; TEMP 98.3
[2024-01-01 05:54] VITALS: BP 121/76; TEMP 97.5; O2SAT 99
[2024-01-01] MEDS ORDERED: DOCUSATE SODIUM 100MG CAPSULE PO PRN (14:05)
[2024-01-01 17:15] VITALS: BP 134/81; TEMP 98.5
[2024-01-02 06:20] VITALS: BP 119/79; TEMP 97.6; O2SAT 99
[2024-01-02 16:32] VITALS: BP 161/89; TEMP 97.2; O2SAT 97
[2024-01-03 06:34] VITALS: BP 137/88; TEMP 97.2; O2SAT 98
[2024-01-03] MEDS ORDERED: TRAZ-252 PO (08:12)
[2024-01-03] MEDS ORDERED: ASCO50TA PO (08:12)
[2024-01-03] MEDS ORDERED: ABIL1TAB11 PO (08:12)
[2024-01-03] MEDS ORDERED: NALT50TA4 PO (08:12)
[2024-01-03] MEDS ORDERED: Multivitamins PO (08:12)
[2024-01-03] MEDS ORDERED: METF-838 PO (08:12)
[2024-01-03] MEDS ORDERED: VENL75CA47 PO (08:12)
[2024-01-03] MEDS ORDERED: ACAM0.05 PO (08:12)
[2024-01-03] MEDS ORDERED: VITA500T40 PO (08:12)
== END 2024-01-03 08:40 | DRG 754 ==
LOC: M PSY 21:00
PROVIDERS: ADMIT Student in an Organized Health Care Education/Training Program; ATTEND Student in an Organized Health Care Education/Training Program
DX: F32.A Depression, unspecified (principal); I10 Essential (primary) hypertension; F10.24 Alcohol dependence with alcohol-induced mood disorder; F17.200 Nicotine dependence, unspecified, uncomplicated; E87.6 Hypokalemia; Z79.899 Other long term (current) drug therapy; Z63.5 Disruption of family by separation and divorce; Z81.1 Family history of alcohol abuse and dependence; Z91.51 Personal history of suicidal behavior

== ENCOUNTER 2024-01-20 12:43 | Inpatient (IN) | payer MEDICAID, OTHER ==
[~2024-01-20] VITALS: Ht 172.7 cm; Wt 112.9 kg
[~2024-01-20 12:43] MED LIST changes: +ABIL1TAB11 PO; +METF-838 PO; +MM S100C PO; +Multivitamins PO; +TRAZ-252 PO; +VITA500C24 PO; +VITA500T41 PO
[2024-01-20 13:29] LABS: HEMATOCRIT 44.5 % (42.0-52.0); HEMOGLOBIN 15.6 g/dl (13.5-17.5); MEAN CORPUSCULAR HGB CONC 35.1 g/dl (32.0-36.5); MEAN CORPUSCULAR VOLUME 88.3 fl (80.0-96.0); PLATELET COUNT, AUTOMATED 274 10^3/uL (150-450); RED BLOOD COUNT 5.04 10^6/uL (4.30-6.10); WHITE BLOOD COUNT 8.5 10^3/uL (4.0-10.0)
[2024-01-20 13:56] LABS: ETHYL ALCOHOL (ETHANOL) 0.129 % (0.000-0.010)
[2024-01-20 13:58] LABS: SALICYLATE LEVEL < 3.0 MG/DL (<30)
[2024-01-20 14:18] LABS: BARBITURATES URINE NEGATIVE (NEGATIVE); COCAINE METABOLITE URINE NEGATIVE (NEGATIVE); METHADONE URINE NEGATIVE (NEGATIVE); OPIATES URINE NEGATIVE (NEGATIVE); PHENCYCLIDINE URINE NEGATIVE (NEGATIVE)
[2024-01-20 14:19] LABS: AMPHETAMINES LEVEL URINE NEGATIVE (NEGATIVE); BENZODIAZEPINES URINE NEGATIVE (NEGATIVE); CANNABINOIDS URINE NEGATIVE (NEGATIVE)
[2024-01-20 14:27] LABS: ALBUMIN 3.6 G/DL (3.2-5.2); ALKALINE PHOSPHATASE 84 U/L (46-116); ALT/SGPT 25 U/L (7.0-40); AST/SGOT 15 U/L (<34); BILIRUBIN,DIRECT < 0.1 MG/DL (<0.4); BILIRUBIN,TOTAL 0.3 MG/DL (0.3-1.2); BLOOD UREA NITROGEN 15 MG/DL (9-23); CALCIUM LEVEL 8.8 MG/DL (8.5-10.1); CARBON DIOXIDE LEVEL 27 MMOL/L (20-31); CHLORIDE LEVEL 99 MMOL/L (98-107); CREATININE FOR GFR 0.78 MG/DL (0.70-1.30); GLOMERULAR FILTRATION RATE > 60.0 (>60); GLUCOSE, FASTING 117 MG/DL (60-100); POTASSIUM SERUM 3.4 MMOL/L (3.5-5.1); SODIUM LEVEL 134 MMOL/L (136-145); THYROID STIMULATING HORMONE 1.487 uIU/ML (0.55-4.78); TOTAL PROTEIN 6.7 G/DL (5.7-8.2)
[2024-01-20] MEDS ORDERED: traZODone 50 MG TAB PO PRN (16:40)
[2024-01-20] MEDS ORDERED: MOM 30ML SUSPENSION UDC PO PRN (16:40)
[2024-01-20] MEDS ORDERED: ACETAMINOPHEN TAB 650MG DOSE (2X325MG) PO PRN (16:40)
[2024-01-20] MEDS ORDERED: MAALOX 30 ML SUSP *UDC PO PRN (16:40)
[2024-01-20] MEDS: POTASSIUM CHLORIDE 10MEQ SR TABLET PO ONE (17:50)
[2024-01-20] MEDS: IBUPROFEN 400MG TAB PO PRN (17:52)
[2024-01-20] MEDS ORDERED: QUET1TAB17 PO (19:18)
[2024-01-20] MEDS ORDERED: B-12100021 PO (19:18)
[2024-01-20] MEDS ORDERED: METF500T13 PO (19:18)
[2024-01-20] MEDS ORDERED: CLON-412 PO (19:18)
[2024-01-20] MEDS ORDERED: VITA100065 PO (19:18)
[2024-01-20] MEDS ORDERED: ACAM0.05 PO (19:18)
[2024-01-20] MEDS ORDERED: TRAZ-252 PO (19:18)
[2024-01-20] MEDS ORDERED: HYDR50TA70 PO (19:18)
[2024-01-20] MEDS ORDERED: MULTTAB61 PO (19:18)
[2024-01-20] MEDS ORDERED: VENL75TA2 PO (19:18)
[2024-01-20] MEDS ORDERED: VIVI380I IM (19:18)
[2024-01-20] MEDS ORDERED: D31000CA4 PO (19:29)
[2024-01-20] MEDS ORDERED: HOME MED LIST COMPLETE! XX SCH (19:40)
[2024-01-20] MEDS ORDERED: LORazepam 2 MG TAB PO PRN (21:55)
[2024-01-20 22:00] VITALS: BP 112/70
[2024-01-20 22:08] VITALS: BP 112/70; TEMP 97.8; O2SAT 98
[2024-01-20] MEDS: diphenhydrAMINE 25MG CAP PO PRN (22:08)
[2024-01-20] MEDS: QUEtiapine FUMARATE 25 MG TAB PO SCH (22:08)
[2024-01-20] MEDS: THIAMINE 100 MG TAB PO SCH (22:08)
[2024-01-21 06:14] VITALS: BP 124/74; TEMP 98.1; O2SAT 98
[2024-01-21] MEDS: FOLIC ACID 1MG TAB PO SCH (09:15)
[2024-01-21] MEDS: MULTIVITAMINS/MINERALS THERAP 1 TAB PO SCH (09:15)
[2024-01-21] MEDS ORDERED: HOME MED LIST COMPLETE! XX SCH (11:25)
[2024-01-21 13:17] LABS: BLOOD UREA NITROGEN 13 MG/DL (9-23); CALCIUM LEVEL 9.2 MG/DL (8.5-10.1); CARBON DIOXIDE LEVEL 29 MMOL/L (20-31); CHLORIDE LEVEL 104 MMOL/L (98-107); CREATININE FOR GFR 0.83 MG/DL (0.70-1.30); GLOMERULAR FILTRATION RATE > 60.0 (>60); GLUCOSE, FASTING 128 MG/DL (60-100); POTASSIUM SERUM 4.2 MMOL/L (3.5-5.1); SODIUM LEVEL 139 MMOL/L (136-145)
[2024-01-21 14:03] VITALS: BP 117/74
[2024-01-21 14:04] VITALS: BP 117/74; TEMP 97.4; O2SAT 100
[2024-01-21 17:04] VITALS: BP 128/68; TEMP 97.6; O2SAT 100
[2024-01-21 22:04] VITALS: BP 118/55
[2024-01-22 06:21] VITALS: BP 118/64
[2024-01-22 06:47] VITALS: BP 118/64; TEMP 96.9; O2SAT 99
[2024-01-22 08:29] VITALS: BP 134/85
[2024-01-22] MEDS: METOPROLOL TART 25 MG TABLET PO SCH (08:29)
[2024-01-22] MEDS: hydroCHLOROthiazide 12.5 MG CAPSULE PO SCH (08:30)
== END 2024-01-22 11:47 | disposition home or self-care (01) | DRG 754 ==
LOC: M ED 12:43 → M ED INP 16:40 → M PSY 21:35
PROVIDERS: ADMIT Student in an Organized Health Care Education/Training Program; ATTEND Student in an Organized Health Care Education/Training Program
DX: F32.A Depression, unspecified (principal); I10 Essential (primary) hypertension; R45.851 Suicidal ideations; F10.14 Alcohol abuse with alcohol-induced mood disorder; F17.200 Nicotine dependence, unspecified, uncomplicated; E78.00 Pure hypercholesterolemia, unspecified; E87.6 Hypokalemia; Z98.84 Bariatric surgery status; Z91.51 Personal history of suicidal behavior; Z56.0 Unemployment, unspecified; Z81.1 Family history of alcohol abuse and dependence; Z63.0 Problems in relationship with spouse or partner; Z79.84 Long term (current) use of oral hypoglycemic drugs; Z79.899 Other long term (current) drug therapy

== ENCOUNTER 2024-02-11 12:43 | Inpatient (IN) | payer OTHER, MEDICAID ==
[~2024-02-11] VITALS: Ht 172.7 cm; Wt 113.0 kg
[~2024-02-11 12:43] MED LIST changes: +B-12100021 PO; +CLON-412 PO; +D31000CA4 PO; +HYDR50TA70 PO; +METF500T13 PO; +VENL75TA2 PO; +VITA100065 PO; +VIVI380I IM
[2024-02-11] MEDS ORDERED: MED REC IN PROGRESS XX SCH (14:30)
[2024-02-11 14:32] LABS: HEMATOCRIT 42.4 % (42.0-52.0); HEMOGLOBIN 15.3 g/dl (13.5-17.5); MEAN CORPUSCULAR HEMOGLOBIN 30.5 pg (27.0-33.0); MEAN CORPUSCULAR HGB CONC 36.1 g/dl (32.0-36.5); MEAN CORPUSCULAR VOLUME 84.6 fl (80.0-96.0); PLATELET COUNT, AUTOMATED 247 10^3/uL (150-450); RED BLOOD COUNT 5.01 10^6/uL (4.30-6.10); WHITE BLOOD COUNT 7.6 10^3/uL (4.0-10.0)
[2024-02-11 14:41] LABS: AMPHETAMINES LEVEL URINE NEGATIVE (NEGATIVE)
[2024-02-11 14:42] LABS: BARBITURATES URINE NEGATIVE (NEGATIVE); BENZODIAZEPINES URINE NEGATIVE (NEGATIVE); CANNABINOIDS URINE NEGATIVE (NEGATIVE); COCAINE METABOLITE URINE NEGATIVE (NEGATIVE); METHADONE URINE NEGATIVE (NEGATIVE); OPIATES URINE NEGATIVE (NEGATIVE); PHENCYCLIDINE URINE NEGATIVE (NEGATIVE)
[2024-02-11 14:43] LABS: ETHYL ALCOHOL (ETHANOL) 0.224 % (0.000-0.010)
[2024-02-11 14:45] LABS: SALICYLATE LEVEL < 3.0 MG/DL (<30)
[2024-02-11 14:48] LABS: ALBUMIN 3.4 G/DL (3.2-5.2); ALKALINE PHOSPHATASE 73 U/L (46-116); ALT/SGPT 17 U/L (7.0-40); AST/SGOT 17 U/L (<34); BILIRUBIN,DIRECT 0.1 MG/DL (<0.4); BILIRUBIN,TOTAL 0.4 MG/DL (0.3-1.2); BLOOD UREA NITROGEN 11 MG/DL (9-23); CALCIUM LEVEL 7.7 MG/DL (8.5-10.1); CARBON DIOXIDE LEVEL 28 MMOL/L (20-31); CHLORIDE LEVEL 99 MMOL/L (98-107); CREATININE FOR GFR 0.79 MG/DL (0.70-1.30); GLOMERULAR FILTRATION RATE > 60.0 (>60); GLUCOSE, FASTING 89 MG/DL (60-100); POTASSIUM SERUM 3.7 MMOL/L (3.5-5.1); SODIUM LEVEL 134 MMOL/L (136-145); THYROID STIMULATING HORMONE 0.933 uIU/ML (0.55-4.78)
[2024-02-11] MEDS ORDERED: ASCO500T PO (15:03)
[2024-02-11] MEDS ORDERED: CYAN500T20 PO (15:03)
[2024-02-11] MEDS ORDERED: HOME MED LIST COMPLETE! XX SCH (15:05)
[2024-02-11] MEDS ORDERED: MOM 30ML SUSPENSION UDC PO PRN (21:40)
[2024-02-11] MEDS ORDERED: IBUPROFEN 400MG TAB PO PRN (21:40)
[2024-02-11] MEDS ORDERED: MAALOX 30 ML SUSP *UDC PO PRN (21:40)
[2024-02-11] MEDS ORDERED: LORazepam 2 MG TAB PO PRN (22:40)
[2024-02-11 23:27] VITALS: BP 109/76
[2024-02-11] MEDS: ACETAMINOPHEN TAB 650MG DOSE (2X325MG) PO PRN (23:31)
[2024-02-11] MEDS: THIAMINE 100 MG TAB PO SCH (23:31)
[2024-02-11] MEDS: traZODone 50 MG TAB PO PRN (23:31)
[2024-02-11 23:36] VITALS: BP 109/76; TEMP 97.9; O2SAT 96
[2024-02-12 06:08] VITALS: BP 140/69; TEMP 98.3; O2SAT 98
[2024-02-12 08:00] VITALS: BP 135/86
[2024-02-12] MEDS: MULTIVITAMINS/MINERALS THERAP 1 TAB PO SCH (08:03)
[2024-02-12] MEDS: FOLIC ACID 1MG TAB PO SCH (08:04)
[2024-02-12] MEDS: ACAMPROSATE CALCIUM 333MG TABLET (CAMPRAL) PO SCH (09:00)
[2024-02-12] MEDS: DOCUSATE SODIUM 100MG CAPSULE PO SCH (09:00)
[2024-02-12] MEDS: NICOTINE 14 MG/24 HR TRANSDERMAL TD SCH (09:00)
[2024-02-12] MEDS ORDERED: cloNIDine 0.1MG TABLET PO PRN (09:35)
[2024-02-12] MEDS ORDERED: hydrOXYzine 50 MG TAB PO PRN (09:35)
[2024-02-12] MEDS: CYANOCOBALAMIN 500 MCG TAB PO SCH (12:44)
[2024-02-12] MEDS: VENLAFAXINE 37.5 MG TAB PO SCH (12:45)
[2024-02-12] MEDS: ASCORBIC ACID 500 MG TAB PO SCH (12:45)
[2024-02-12] MEDS: metFORMIN (GLUCOPHAGE) 500MG TAB PO SCH (12:46)
[2024-02-12] MEDS: NALTREXONE 50 MG TAB PO SCH (12:46)
[2024-02-12] MEDS ORDERED: DOCUSATE SODIUM 100MG CAPSULE PO PRN (13:00)
[2024-02-12 18:13] VITALS: BP 118/87; TEMP 97.3
[2024-02-12] MEDS: QUEtiapine FUMARATE 25 MG TAB PO SCH (20:24)
[2024-02-12] MEDS: traZODone 50 MG TAB PO SCH (20:24)
[2024-02-12] MEDS: NALTREXONE 380 MG IM ONE (21:29)
[2024-02-12 22:17] VITALS: BP 104/55
[2024-02-13 06:23] VITALS: BP 110/68; TEMP 98.2; O2SAT 99
[2024-02-13 09:01] LABS: HEMOGLOBIN A1c 4.8 % (4.0-6.0)
[2024-02-13 09:10] LABS: CHOLESTEROL RISK RATIO 4.08 (<5); LDL CHOLESTEROL 124.6 MG/DL (<100)
[2024-02-13 15:00] VITALS: BP 117/77
[2024-02-13 18:03] VITALS: BP 117/77; TEMP 98.3; O2SAT 97
[2024-02-14 06:41] VITALS: BP 98/56; TEMP 98.4; O2SAT 98
[2024-02-14 15:51] VITALS: BP 121/75; TEMP 97.6; O2SAT 98
[2024-02-14] MEDS: diphenhydrAMINE 25MG CAP PO PRN (20:03)
[2024-02-15 06:18] VITALS: BP 104/60; TEMP 98; O2SAT 96
[2024-02-15 16:15] VITALS: BP 124/85; TEMP 97.6; O2SAT 97
[2024-02-16 06:18] VITALS: BP 102/55; TEMP 98.1; O2SAT 97
[2024-02-16 15:43] VITALS: BP 117/74; TEMP 97.6; O2SAT 99
[2024-02-17 06:24] VITALS: BP 102/59; TEMP 97.1; O2SAT 100
[2024-02-17 18:00] VITALS: BP 111/67; TEMP 97.9
[2024-02-17] MEDS: QUEtiapine FUMARATE 50MG TAB PO SCH (20:13)
[2024-02-18 06:26] VITALS: BP 114/75; TEMP 97.4; O2SAT 97
[2024-02-18] MEDS ORDERED: TRAZ-252 PO (10:26)
[2024-02-18] MEDS ORDERED: VIVI380I IM (10:26)
[2024-02-18] MEDS ORDERED: ACAM0.05 PO (10:26)
[2024-02-18] MEDS ORDERED: VENL37TA PO (10:27)
[2024-02-18] MEDS ORDERED: QUET50TA4 PO (10:27)
== END 2024-02-18 11:46 | disposition home or self-care (01) | DRG 753 ==
LOC: M ED 12:43 → M ED INP 21:38 → M PSY 22:58
PROVIDERS: ADMIT Student in an Organized Health Care Education/Training Program; ATTEND Student in an Organized Health Care Education/Training Program
DX: F32.89 Other specified depressive episodes (principal); F84.9 Pervasive developmental disorder, unspecified; F79 Unspecified intellectual disabilities; F10.24 Alcohol dependence with alcohol-induced mood disorder; R45.851 Suicidal ideations; I10 Essential (primary) hypertension; F17.200 Nicotine dependence, unspecified, uncomplicated; F41.9 Anxiety disorder, unspecified; E78.5 Hyperlipidemia, unspecified; Z79.84 Long term (current) use of oral hypoglycemic drugs; Z79.899 Other long term (current) drug therapy; Z91.51 Personal history of suicidal behavior; Z56.0 Unemployment, unspecified; Z71.41 Alcohol abuse counseling and surveillance of alcoholic; Z98.84 Bariatric surgery status; Z81.1 Family history of alcohol abuse and dependence; Z71.6 Tobacco abuse counseling

== ENCOUNTER 2024-02-21 14:38 | Inpatient (IN) | payer MEDICAID, OTHER ==
[~2024-02-21] VITALS: Ht 172.7 cm; Wt 86.3 kg
[~2024-02-21 14:38] MED LIST changes: +ASCO500T PO; +CYAN500T20 PO; +VENL37TA PO
[2024-02-21 15:05] LABS: HEMATOCRIT 43.3 % (42.0-52.0); HEMOGLOBIN 15.4 g/dl (13.5-17.5); MEAN CORPUSCULAR HEMOGLOBIN 30.7 pg (27.0-33.0); MEAN CORPUSCULAR HGB CONC 35.6 g/dl (32.0-36.5); MEAN CORPUSCULAR VOLUME 86.3 fl (80.0-96.0); PLATELET COUNT, AUTOMATED 265 10^3/uL (150-450); RED BLOOD COUNT 5.02 10^6/uL (4.30-6.10); WHITE BLOOD COUNT 7.7 10^3/uL (4.0-10.0)
[2024-02-21 15:36] LABS: AMPHETAMINES LEVEL URINE NEGATIVE (NEGATIVE); BARBITURATES URINE NEGATIVE (NEGATIVE); CANNABINOIDS URINE NEGATIVE (NEGATIVE); COCAINE METABOLITE URINE NEGATIVE (NEGATIVE); METHADONE URINE NEGATIVE (NEGATIVE); OPIATES URINE NEGATIVE (NEGATIVE); PHENCYCLIDINE URINE NEGATIVE (NEGATIVE)
[2024-02-21 15:37] LABS: BENZODIAZEPINES URINE NEGATIVE (NEGATIVE)
[2024-02-21 15:40] LABS: SALICYLATE LEVEL < 3.0 MG/DL (<30)
[2024-02-21 15:41] LABS: ALBUMIN 3.5 G/DL (3.2-5.2); ALKALINE PHOSPHATASE 70 U/L (46-116); ALT/SGPT 19 U/L (7.0-40); AST/SGOT 13 U/L (<34); BILIRUBIN,DIRECT 0.1 MG/DL (<0.4); BILIRUBIN,TOTAL 0.4 MG/DL (0.3-1.2); BLOOD UREA NITROGEN 14 MG/DL (9-23); CALCIUM LEVEL 8.5 MG/DL (8.5-10.1); CARBON DIOXIDE LEVEL 28 MMOL/L (20-31); CHLORIDE LEVEL 103 MMOL/L (98-107); GLOMERULAR FILTRATION RATE > 60.0 (>60); GLUCOSE, FASTING 92 MG/DL (60-100); SODIUM LEVEL 138 MMOL/L (136-145); TOTAL PROTEIN 6.3 G/DL (5.7-8.2)
[2024-02-21 15:43] LABS: THYROID STIMULATING HORMONE 0.694 uIU/ML (0.55-4.78)
[2024-02-21 16:00] LABS: ETHYL ALCOHOL (ETHANOL) 0.299 % (0.000-0.010)
[2024-02-21] MEDS ORDERED: LORazepam 2 MG TAB PO PRN (18:15)
[2024-02-21] MEDS ORDERED: VENL37TA PO (19:45)
[2024-02-21] MEDS ORDERED: HOME MED LIST COMPLETE! XX SCH (19:50)
[2024-02-21] MEDS: THIAMINE 100 MG TAB PO SCH (21:08)
[2024-02-22] MEDS ORDERED: IBUPROFEN 400MG TAB PO PRN (00:45)
[2024-02-22] MEDS ORDERED: NICOTINE 21MG/24HR 1 EA TRANSDERMAL TD PRN (00:45)
[2024-02-22] MEDS ORDERED: LORazepam 2 MG TAB PO PRN (00:45)
[2024-02-22] MEDS ORDERED: MOM 30ML SUSPENSION UDC PO PRN (00:45)
[2024-02-22] MEDS ORDERED: MAALOX 30 ML SUSP *UDC PO PRN (00:45)
[2024-02-22] MEDS ORDERED: cloNIDine 0.1MG TABLET PO PRN (00:45)
[2024-02-22] MEDS ORDERED: hydrOXYzine 50 MG TAB PO PRN (00:45)
[2024-02-22] MEDS ORDERED: ACETAMINOPHEN TAB 650MG DOSE (2X325MG) PO PRN (00:45)
[2024-02-22] MEDS ORDERED: QUET50TA4 PO (01:31)
[2024-02-22 02:14] VITALS: BP 128/77
[2024-02-22 06:19] VITALS: BP 131/74; TEMP 97.4; O2SAT 94
[2024-02-22] MEDS: VENLAFAXINE 37.5 MG TAB PO SCH (08:18)
[2024-02-22] MEDS: DOCUSATE SODIUM 100MG CAPSULE PO SCH (08:18)
[2024-02-22] MEDS: MULTIVITAMINS/MINERALS THERAP 1 TAB PO SCH (08:18)
[2024-02-22] MEDS: FOLIC ACID 1MG TAB PO SCH (08:18)
[2024-02-22] MEDS: ACAMPROSATE CALCIUM 333MG TABLET (CAMPRAL) PO SCH (08:18)
[2024-02-22] MEDS: CYANOCOBALAMIN 500 MCG TAB PO SCH (08:18)
[2024-02-22] MEDS: THIAMINE 100 MG TAB PO SCH (08:19)
[2024-02-22] MEDS: metFORMIN (GLUCOPHAGE) 500MG TAB PO SCH (08:19)
[2024-02-22] MEDS: ASCORBIC ACID 500 MG TAB PO SCH (08:19)
[2024-02-22] MEDS ORDERED: MULTIVITAMINS/MINERALS THERAP 1 TAB PO SCH (09:00)
[2024-02-22] MEDS ORDERED: FOLIC ACID 1MG TAB PO SCH (09:00)
[2024-02-22 10:30] VITALS: BP 113/78
[2024-02-22 16:07] VITALS: BP 110/71; TEMP 98.6; O2SAT 97
[2024-02-22] MEDS: QUEtiapine FUMARATE 25 MG TAB PO SCH (19:52)
[2024-02-22] MEDS: traZODone 50 MG TAB PO SCH (19:52)
[2024-02-23 06:08] VITALS: BP 113/83
[2024-02-23 06:13] VITALS: TEMP 97; O2SAT 99
[2024-02-23 06:52] VITALS: BP 113/83; TEMP 97; O2SAT 99
[2024-02-23 16:00] VITALS: BP 116/73; TEMP 97.7; O2SAT 98
[2024-02-24 06:48] VITALS: BP 146/98; TEMP 97.3; O2SAT 100
[2024-02-24] MEDS: diphenhydrAMINE 25MG CAP PO PRN (08:09)
[2024-02-24 17:57] VITALS: BP 108/72; TEMP 97.4
[2024-02-25 06:00] VITALS: BP 99/57; TEMP 97.5; O2SAT 96
[2024-02-25 16:28] VITALS: BP 131/78; TEMP 97.7
[2024-02-26 06:22] VITALS: BP 112/59; TEMP 98; O2SAT 95
[2024-02-26 18:15] VITALS: BP 137/70; TEMP 97.1
[2024-02-26 20:11] VITALS: BP 116/73
[2024-02-27 06:18] VITALS: BP 97/58; TEMP 97.8; O2SAT 98
[2024-02-27] MEDS ORDERED: QUET1TAB17 PO (10:23)
[2024-02-27] MEDS ORDERED: NICO21PAT TD (10:23)
== END 2024-02-27 12:08 | disposition home or self-care (01) | DRG 751 ==
LOC: M ED 14:38 → M ED INP 02-22 00:42 → M PSY 02-22 02:14
PROVIDERS: ADMIT Student in an Organized Health Care Education/Training Program; ATTEND Student in an Organized Health Care Education/Training Program
DX: F33.2 Major depressive disorder, recurrent severe without psychotic features (principal); I10 Essential (primary) hypertension; R45.851 Suicidal ideations; E78.5 Hyperlipidemia, unspecified; F10.229 Alcohol dependence with intoxication, unspecified; F10.24 Alcohol dependence with alcohol-induced mood disorder; Z91.51 Personal history of suicidal behavior; Z79.84 Long term (current) use of oral hypoglycemic drugs; Z98.84 Bariatric surgery status; Z79.899 Other long term (current) drug therapy

== ENCOUNTER 2024-03-06 22:07 | Emergency (ER) | payer MEDICAID, OTHER ==
[~2024-03-06] VITALS: Ht 172.7 cm; Wt 100.0 kg
[~2024-03-06 22:07] MED LIST changes: +NICO21PAT TD; +ONDA-282 PO; -ONDA4TAB6 PO
[2024-03-06 22:28] VITALS: BP 139/90; TEMP 97.2; O2SAT 97
== END 2024-03-07 01:02 | disposition left against medical advice (07) ==
LOC: M ED 22:07 → EDBD 22:07 → M ED 03-07 01:02
DX: Z53.21 Procedure and treatment not carried out due to patient leaving prior to being seen by health care provider (principal)

== ENCOUNTER 2024-03-12 14:52 | Inpatient (IN) | payer OTHER ==
[~2024-03-12] VITALS: Ht 172.7 cm; Wt 111.7 kg
[2024-03-12] MEDS ORDERED: LORazepam 2 MG TAB PO PRN (15:05)
[2024-03-12 15:31] LABS: HEMATOCRIT 45.4 % (42.0-52.0); HEMOGLOBIN 16.2 g/dl (13.5-17.5); MEAN CORPUSCULAR HEMOGLOBIN 30.2 pg (27.0-33.0); MEAN CORPUSCULAR HGB CONC 35.7 g/dl (32.0-36.5); MEAN CORPUSCULAR VOLUME 84.5 fl (80.0-96.0); PLATELET COUNT, AUTOMATED 297 10^3/uL (150-450); RED BLOOD COUNT 5.37 10^6/uL (4.30-6.10); WHITE BLOOD COUNT 11.1 10^3/uL (4.0-10.0)
[2024-03-12] MEDS: FOLIC ACID 1MG TAB PO SCH (15:32)
[2024-03-12] MEDS: MULTIVITAMINS/MINERALS THERAP 1 TAB PO SCH (15:33)
[2024-03-12] MEDS: THIAMINE 100 MG TAB PO SCH (15:34)
[2024-03-12 15:53] LABS: AMPHETAMINES LEVEL URINE NEGATIVE (NEGATIVE); BARBITURATES URINE NEGATIVE (NEGATIVE)
[2024-03-12 15:54] LABS: BENZODIAZEPINES URINE NEGATIVE (NEGATIVE); CANNABINOIDS URINE NEGATIVE (NEGATIVE); COCAINE METABOLITE URINE NEGATIVE (NEGATIVE); METHADONE URINE NEGATIVE (NEGATIVE); OPIATES URINE NEGATIVE (NEGATIVE); PHENCYCLIDINE URINE NEGATIVE (NEGATIVE)
[2024-03-12 15:58] LABS: ALBUMIN 4.1 G/DL (3.2-5.2); ALKALINE PHOSPHATASE 79 U/L (46-116); ALT/SGPT 21 U/L (7.0-40); AST/SGOT 17 U/L (<34); BILIRUBIN,DIRECT 0.1 MG/DL (<0.4); BILIRUBIN,TOTAL 0.4 MG/DL (0.3-1.2); BLOOD UREA NITROGEN 13 MG/DL (9-23); CALCIUM LEVEL 8.6 MG/DL (8.5-10.1); CARBON DIOXIDE LEVEL 29 MMOL/L (20-31); CHLORIDE LEVEL 101 MMOL/L (98-107); CREATININE FOR GFR 0.86 MG/DL (0.70-1.30); GLOMERULAR FILTRATION RATE > 60.0 (>60); GLUCOSE, FASTING 100 MG/DL (60-100); POTASSIUM SERUM 3.4 MMOL/L (3.5-5.1); SALICYLATE LEVEL < 3.0 MG/DL (<30); SODIUM LEVEL 139 MMOL/L (136-145)
[2024-03-12 15:59] LABS: THYROID STIMULATING HORMONE 0.946 uIU/ML (0.55-4.78)
[2024-03-12] MEDS ORDERED: ACAM0.05 PO (19:27)
[2024-03-12] MEDS ORDERED: HOME MED LIST COMPLETE! XX SCH (19:30)
[2024-03-13] MEDS: POTASSIUM CHLORIDE 10MEQ SR TABLET PO ONE (08:31)
[2024-03-13 11:25] LABS: APPEARANCE, URINE CLEAR (CLEAR); BACTERIA, URINE AUTO NEGATIVE (NEGATIVE); BILIRUBIN, URINE AUTO NEGATIVE (NEGATIVE); BLOOD, URINE BLOOD 1+ (NEGATIVE); COLOR, URINE YELLOW (YELLOW); GLUCOSE, URINE (UA) AUTO NEGATIVE (NEGATIVE); KETONE, URINE AUTO NEGATIVE (NEGATIVE); LEUKOCYTE ESTERASE, URINE AUTO TRACE (NEGATIVE); MUCUS, URINE SMALL (NEGATIVE); NITRITE, URINE AUTO NEGATIVE (NEGATIVE); PROTEIN, URINE AUTO 1+ mg/dL (NEGATIVE); RBC, URINE AUTO 12 /HPF (0-3); SPECIFIC GRAVITY URINE AUTO 1.019 (1.002-1.035); SQUAMOUS EPITHELIAL CELL UR AU 2 /HPF (0-6); WBC, URINE AUTO 2 /HPF (0-3)
[2024-03-13] MEDS ORDERED: hydrOXYzine 50 MG TAB PO PRN (12:25)
[2024-03-13] MEDS ORDERED: diphenhydrAMINE 25MG CAP PO PRN (12:25)
[2024-03-13] MEDS ORDERED: MAALOX 30 ML SUSP *UDC PO PRN (12:25)
[2024-03-13] MEDS ORDERED: IBUPROFEN 400MG TAB PO PRN (12:25)
[2024-03-13] MEDS ORDERED: cloNIDine 0.1MG TABLET PO PRN (12:25)
[2024-03-13] MEDS ORDERED: traZODone 50 MG TAB PO PRN (12:25)
[2024-03-13] MEDS ORDERED: LORazepam 2 MG TAB PO PRN (12:25)
[2024-03-13] MEDS ORDERED: MOM 30ML SUSPENSION UDC PO PRN (12:25)
[2024-03-13] MEDS ORDERED: ACETAMINOPHEN TAB 650MG DOSE (2X325MG) PO PRN (12:25)
[2024-03-13] MEDS: CEPHALEXIN 500 MG CAP PO SCH ×2 (13:09→20:33)
[2024-03-13] MEDS: IBUPROFEN 600MG TAB PO ONE (13:10)
[2024-03-13 15:27] VITALS: BP 141/102
[2024-03-13 16:10] VITALS: BP 159/92; TEMP 97.5; O2SAT 98
[2024-03-13] MEDS: METOPROLOL TART 50 MG TAB PO ONE (16:31)
[2024-03-13] MEDS: VENLAFAXINE 37.5 MG TAB PO SCH (20:33)
[2024-03-13] MEDS: traZODone 50 MG TAB PO SCH (20:33)
[2024-03-13] MEDS: QUEtiapine FUMARATE 50MG TAB PO SCH (20:33)
[2024-03-13] MEDS: ACAMPROSATE CALCIUM 333MG TABLET (CAMPRAL) PO SCH (20:33)
[2024-03-13] MEDS: THIAMINE 100 MG TAB PO SCH (20:33)
[2024-03-13 22:00] VITALS: BP 101/55
[2024-03-14 06:00] VITALS: BP 110/57
[2024-03-14 06:42] VITALS: BP 110/57; TEMP 97.3; O2SAT 97
[2024-03-14] MEDS: NICOTINE 14 MG/24 HR TRANSDERMAL TD SCH (08:07)
[2024-03-14] MEDS: DOCUSATE SODIUM 100MG CAPSULE PO SCH (08:08)
[2024-03-14] MEDS: CYANOCOBALAMIN 500 MCG TAB PO SCH (08:08)
[2024-03-14] MEDS: FOLIC ACID 1MG TAB PO SCH (08:08)
[2024-03-14] MEDS: MULTIVITAMINS/MINERALS THERAP 1 TAB PO SCH (08:08)
[2024-03-14] MEDS: METOPROLOL TART 50 MG TAB PO SCH (09:56)
[2024-03-14] MEDS ORDERED: FLUTICASONE PROP 0.05% NASAL SPRAY 16 GM (FLONASE) NARES ONE (14:45)
[2024-03-14] MEDS: FLUTICASONE PROP 0.05% NASAL SPRAY 16 GM (FLONASE) NARES SCH (14:50)
[2024-03-14] MEDS: CETIRIZINE (ZyrTEC) 10 MG TAB PO ONE (15:53)
[2024-03-14] MEDS: guaiFENesin ER TABLET 600 MG TAB PO ONE (15:53)
[2024-03-14] MEDS: MONTELUKAST 10 MG TAB PO ONE (15:53)
[2024-03-14 16:16] VITALS: BP 117/70; TEMP 97.1
[2024-03-14 16:17] VITALS: O2SAT 96
[2024-03-14 18:03] LABS: GC DNA AMPLIFICATION NEGATIVE (NEGATIVE)
[2024-03-14] MEDS ORDERED: ALBUTEROL 90 MCG/ACT 8GM HFA INHALER INH PRN (18:35)
[2024-03-14] MEDS: guaiFENesin ER TABLET 600 MG TAB PO SCH (21:08)
[2024-03-14] MEDS: ALBUTEROL 90 MCG/ACT 8GM HFA INHALER INH SCH (21:16)
[2024-03-15 06:18] VITALS: BP 122/66; TEMP 97.8; O2SAT 97
[2024-03-15] MEDS: MONTELUKAST 10 MG TAB PO SCH (09:21)
[2024-03-15] MEDS: CETIRIZINE (ZyrTEC) 10 MG TAB PO SCH (09:21)
[2024-03-15 16:26] VITALS: BP 114/74; TEMP 98.4; O2SAT 99
[2024-03-16 06:44] VITALS: BP 128/62; TEMP 97.7; O2SAT 97
[2024-03-16 17:59] VITALS: BP 119/75; TEMP 99.2
[2024-03-17 06:16] VITALS: BP 103/59; TEMP 97.8; O2SAT 99
[2024-03-17 18:00] VITALS: BP 129/78; TEMP 98.8; O2SAT 97
[2024-03-18 05:52] VITALS: BP 110/74; TEMP 96.9; O2SAT 100
[2024-03-18 08:30] VITALS: BP 153/89
[2024-03-18 17:42] VITALS: BP 121/76; TEMP 97.5
[2024-03-19 06:18] VITALS: BP 102/61; TEMP 97.6; O2SAT 100
[2024-03-19 17:54] VITALS: BP 135/82; TEMP 97.9
[2024-03-20 06:27] VITALS: BP 144/82; TEMP 97.8
[2024-03-20] MEDS ORDERED: NALT50TA4 PO (08:09)
[2024-03-20 08:12] VITALS: BP 116/77
== END 2024-03-20 10:23 | disposition home or self-care (01) | DRG 751 ==
LOC: M ED 14:52 → M ED INP 03-13 12:24 → M PSY 03-13 15:32
PROVIDERS: ADMIT Student in an Organized Health Care Education/Training Program; ATTEND Student in an Organized Health Care Education/Training Program
DX: F33.9 Major depressive disorder, recurrent, unspecified (principal); I10 Essential (primary) hypertension; R45.851 Suicidal ideations; F10.20 Alcohol dependence, uncomplicated; R30.0 Dysuria; J30.9 Allergic rhinitis, unspecified; F60.89 Other specific personality disorders; Z63.4 Disappearance and death of family member; Z91.51 Personal history of suicidal behavior; Z98.84 Bariatric surgery status; Z79.899 Other long term (current) drug therapy; B34.9 Viral infection, unspecified

== ENCOUNTER 2024-03-29 20:23 | Emergency (ER) | payer OTHER ==
[~2024-03-29] VITALS: Ht 172.7 cm; Wt 104.5 kg
[2024-03-29 21:06] LABS: HEMATOCRIT 42.9 % (42.0-52.0); HEMOGLOBIN 15.3 g/dl (13.5-17.5); MEAN CORPUSCULAR HEMOGLOBIN 30.4 pg (27.0-33.0); MEAN CORPUSCULAR HGB CONC 35.7 g/dl (32.0-36.5); MEAN CORPUSCULAR VOLUME 85.3 fl (80.0-96.0); PLATELET COUNT, AUTOMATED 340 10^3/uL (150-450); RED BLOOD COUNT 5.03 10^6/uL (4.30-6.10); WHITE BLOOD COUNT 12.4 10^3/uL (4.0-10.0)
[2024-03-29 21:37] LABS: ETHYL ALCOHOL (ETHANOL) 0.202 % (0.000-0.010)
[2024-03-29 21:39] LABS: ALBUMIN 3.9 G/DL (3.2-5.2); ALKALINE PHOSPHATASE 72 U/L (46-116); ALT/SGPT 19 U/L (7.0-40); AST/SGOT 22 U/L (<34); BILIRUBIN,DIRECT < 0.1 MG/DL (<0.4); BILIRUBIN,TOTAL 0.3 MG/DL (0.3-1.2); BLOOD UREA NITROGEN 16 MG/DL (9-23); CALCIUM LEVEL 8.7 MG/DL (8.5-10.1); CARBON DIOXIDE LEVEL 27 MMOL/L (20-31); CHLORIDE LEVEL 102 MMOL/L (98-107); CREATININE FOR GFR 0.89 MG/DL (0.70-1.30); GLOMERULAR FILTRATION RATE > 60.0 (>60); GLUCOSE, FASTING 97 MG/DL (60-100); POTASSIUM SERUM 3.6 MMOL/L (3.5-5.1); SALICYLATE LEVEL < 3.0 MG/DL (<30); SODIUM LEVEL 139 MMOL/L (136-145)
[2024-03-29 21:42] LABS: THYROID STIMULATING HORMONE 3.353 uIU/ML (0.55-4.78)
[2024-03-29] MEDS ORDERED: MED REC CURRENTLY UNOBTAINABLE XX SCH (23:20)
[2024-03-29 23:35] LABS: AMPHETAMINES LEVEL URINE NEGATIVE (NEGATIVE); BARBITURATES URINE NEGATIVE (NEGATIVE); BENZODIAZEPINES URINE NEGATIVE (NEGATIVE); CANNABINOIDS URINE NEGATIVE (NEGATIVE); COCAINE METABOLITE URINE NEGATIVE (NEGATIVE); METHADONE URINE NEGATIVE (NEGATIVE); OPIATES URINE NEGATIVE (NEGATIVE); PHENCYCLIDINE URINE NEGATIVE (NEGATIVE)
[2024-03-30] MEDS ORDERED: B-12100010 PO (06:37)
[2024-03-30] MEDS ORDERED: HOME MED LIST COMPLETE! XX SCH (08:45)
[2024-03-30] MEDS ORDERED: LORazepam 2 MG TAB PO PRN (12:05)
[2024-03-30 13:39] VITALS: BP 157/84; TEMP 98; O2SAT 98
[2024-03-30] MEDS ORDERED: THIAMINE 100 MG TAB PO SCH (21:00)
[2024-03-31] MEDS ORDERED: FOLIC ACID 1MG TAB PO SCH (09:00)
[2024-03-31] MEDS ORDERED: MULTIVITAMINS/MINERALS THERAP 1 TAB PO SCH (09:00)
== END 2024-03-30 13:50 | disposition home or self-care (01) ==
LOC: M ED 20:23
DX: F10.120 Alcohol abuse with intoxication, uncomplicated (principal); Z79.810 Long term (current) use of selective estrogen receptor modulators (SERMs); Z79.899 Other long term (current) drug therapy

== ENCOUNTER → 2024-10-07 | Outpatient (REF) | payer OTHER, MEDICAID ==
[~2024-10-07] MED LIST changes: +B-12100010 PO
[2024-10-07 18:41] LABS: BASO # 0.1 10^3/uL (0.0-0.2); BASO % 0.9 % (0.0-1.0); EOS # 0.1 10^3/uL (0.0-0.5); EOS % 1.2 % (0.0-3.0); HEMATOCRIT 43.2 % (42.0-52.0); LYMPH # 1.9 10^3/uL (1.5-5.0); LYMPH % 29.3 % (24.0-44.0); MEAN CORPUSCULAR HEMOGLOBIN 30.2 pg (27.0-33.0); MEAN CORPUSCULAR HGB CONC 34.7 g/dl (32.0-36.5); MEAN CORPUSCULAR VOLUME 86.9 fl (80.0-96.0); MONO # 0.6 10^3/uL (0.0-0.8); MONO % 8.9 % (2.0-8.0); NEUTROPHILS # 3.8 10^3/uL (1.5-8.5); NEUTROPHILS % 59.4 % (36.0-66.0); PLATELET COUNT, AUTOMATED 270 10^3/uL (150-450); RED BLOOD COUNT 4.97 10^6/uL (4.30-6.10); WHITE BLOOD COUNT 6.4 10^3/uL (4.0-10.0)
[2024-10-07 19:13] LABS: ALBUMIN 3.9 G/DL (3.2-5.2); ALKALINE PHOSPHATASE 84 U/L (40-129); ALT/SGPT 19 U/L (7.0-40); AST/SGOT 18 U/L (<34); BILIRUBIN,TOTAL 0.8 MG/DL (0.3-1.2); BLOOD UREA NITROGEN 16 MG/DL (9-23); CARBON DIOXIDE LEVEL 28 MMOL/L (20-31); CHLORIDE LEVEL 107 MMOL/L (98-107); CHOLESTEROL LEVEL 214 MG/DL (<200); CHOLESTEROL RISK RATIO 4.17 (<5); CREATININE FOR GFR 0.82 MG/DL (0.70-1.30); GLOMERULAR FILTRATION RATE > 60.0 (>60); GLUCOSE, FASTING 98 MG/DL (60-100); HDL CHOLESTEROL 51.2 MG/DL (>40); LDL CHOLESTEROL 138.2 MG/DL (<100); NON-HDL-C 162.8 MG/DL; PHOSPHORUS LEVEL 3.1 MG/DL (2.5-4.9); POTASSIUM SERUM 4.3 MMOL/L (3.5-5.1); SODIUM LEVEL 140 MMOL/L (136-145); TOTAL PROTEIN 6.7 G/DL (5.7-8.2); TRIGLYCERIDES LEVEL 123 MG/DL (<150)
[2024-10-07 19:18] LABS: FOLATE > 24.0 NG/ML (>5.4); VITAMIN B12 LEVEL 548 PG/ML (211-911)
== END ==
LOC: M LAB REF 16:40
PROVIDERS: ATTEND Nurse Practitioner Family
DX: F10.10 Alcohol abuse, uncomplicated (principal); I10 Essential (primary) hypertension; E78.5 Hyperlipidemia, unspecified; E66.9 Obesity, unspecified; E55.9 Vitamin D deficiency, unspecified

== ENCOUNTER 2024-10-10 15:38 | Inpatient (IN) | payer MEDICAID, OTHER ==
[~2024-10-10] VITALS: Ht 172.7 cm; Wt 130.7 kg
[2024-10-10] MEDS: LORazepam 2 MG/ML 1ML VIAL IM ONE (16:25)
[2024-10-10 16:29] LABS: BASO # 0.1 10^3/uL (0.0-0.2); BASO % 0.8 % (0.0-1.0); EOS # 0.2 10^3/uL (0.0-0.5); EOS % 1.4 % (0.0-3.0); HEMATOCRIT 42.5 % (42.0-52.0); HEMOGLOBIN 15.2 g/dl (13.5-17.5); LYMPH # 3.3 10^3/uL (1.5-5.0); LYMPH % 30.1 % (24.0-44.0); MEAN CORPUSCULAR HEMOGLOBIN 30.2 pg (27.0-33.0); MEAN CORPUSCULAR HGB CONC 35.8 g/dl (32.0-36.5); MEAN CORPUSCULAR VOLUME 84.3 fl (80.0-96.0); MONO # 0.8 10^3/uL (0.0-0.8); NEUTROPHILS # 6.6 10^3/uL (1.5-8.5); NEUTROPHILS % 60.3 % (36.0-66.0); PLATELET COUNT, AUTOMATED 321 10^3/uL (150-450); RED BLOOD COUNT 5.04 10^6/uL (4.30-6.10)
[2024-10-10 16:59] LABS: AMPHETAMINES LEVEL URINE NEGATIVE (NEGATIVE); BARBITURATES URINE NEGATIVE (NEGATIVE); BENZODIAZEPINES URINE NEGATIVE (NEGATIVE); CANNABINOIDS URINE NEGATIVE (NEGATIVE); COCAINE METABOLITE URINE NEGATIVE (NEGATIVE); METHADONE URINE NEGATIVE (NEGATIVE); OPIATES URINE NEGATIVE (NEGATIVE); PHENCYCLIDINE URINE NEGATIVE (NEGATIVE)
[2024-10-10 17:00] LABS: ETHYL ALCOHOL (ETHANOL) 0.226 % (0.000-0.010)
[2024-10-10 17:02] LABS: ALBUMIN 3.8 G/DL (3.2-5.2); ALKALINE PHOSPHATASE 83 U/L (40-129); ALT/SGPT 16 U/L (7.0-40); AST/SGOT 15 U/L (<34); BILIRUBIN,DIRECT 0.1 MG/DL (<0.4); BILIRUBIN,TOTAL 0.3 MG/DL (0.3-1.2); BLOOD UREA NITROGEN 15 MG/DL (9-23); CALCIUM LEVEL 8.1 MG/DL (8.5-10.1); CARBON DIOXIDE LEVEL 21 MMOL/L (20-31); CHLORIDE LEVEL 110 MMOL/L (98-107); CREATININE FOR GFR 0.75 MG/DL (0.70-1.30); GLOMERULAR FILTRATION RATE > 60.0 (>60); GLUCOSE, FASTING 92 MG/DL (60-100); MAGNESIUM LEVEL 2.1 MG/DL (1.8-2.4); POTASSIUM SERUM 3.9 MMOL/L (3.5-5.1); SODIUM LEVEL 144 MMOL/L (136-145); TOTAL PROTEIN 6.8 G/DL (5.7-8.2)
[2024-10-10 17:06] LABS: THYROID STIMULATING HORMONE 1.375 uIU/ML (0.55-4.78)
[2024-10-10 17:08] LABS: CPK CREATINE PHOSPHOKINASE 97 U/L (46-171)
[2024-10-10 18:15] LABS: VENOUS BASE EXCESS -1.7 (-2.0-2.0); VENOUS HCO3 24.3 MMOL/L (23.0-27.0); VENOUS O2 SATURATION 75.2 % (60.0-80.0); VENOUS PARTIAL PRESSURE CO2 45.9 mmHg (38.0-50.0); VENOUS PH 7.342 UNITS (7.330-7.430); VENOUS STANDARD HCO3 22.5 MMOL/L; VENOUS TOTAL CO2 25.7 MMOL/L (24.0-28.0)
[2024-10-10 18:44] LABS: BLOOD UREA NITROGEN 14 MG/DL (9-23); CALCIUM LEVEL 8.7 MG/DL (8.5-10.1); CARBON DIOXIDE LEVEL 27 MMOL/L (20-31); CHLORIDE LEVEL 110 MMOL/L (98-107); CREATININE FOR GFR 0.78 MG/DL (0.70-1.30); GLOMERULAR FILTRATION RATE > 60.0 (>60); GLUCOSE, FASTING 87 MG/DL (60-100); POTASSIUM SERUM 3.9 MMOL/L (3.5-5.1); SODIUM LEVEL 147 MMOL/L (136-145)
[2024-10-10 18:45] LABS: SALICYLATE LEVEL 5.3 MG/DL (<30)
[2024-10-10] MEDS: THIAMINE 100 MG TAB PO SCH (21:00)
[2024-10-10] MEDS: BACITRACIN OINTMENT 30GM TUBE TOP STA (22:40)
[2024-10-11] MEDS ORDERED: ACETAMINOPHEN 325 MG TAB PO PRN (00:30)
[2024-10-11] MEDS ORDERED: diphenhydrAMINE 25MG CAP PO PRN (00:30)
[2024-10-11] MEDS ORDERED: traZODone 50 MG TAB PO PRN (00:30)
[2024-10-11] MEDS ORDERED: MAALOX 30 ML SUSP *UDC PO PRN (00:30)
[2024-10-11] MEDS ORDERED: IBUPROFEN 400MG TAB PO PRN (00:30)
[2024-10-11] MEDS ORDERED: LORazepam 2 MG TAB PO PRN (00:30)
[2024-10-11] MEDS ORDERED: MOM 30ML SUSPENSION UDC PO PRN (00:30)
[2024-10-11 01:21] VITALS: BP 128/80
[2024-10-11] MEDS ORDERED: MED REC CURRENTLY UNOBTAINABLE XX SCH (05:40)
[2024-10-11 06:30] VITALS: BP 138/72
[2024-10-11 07:05] VITALS: BP 138/77; TEMP 97.7; O2SAT 98
[2024-10-11] MEDS: MULTIVITAMINS/MINERALS THERAP 1 TAB PO SCH (09:54)
[2024-10-11] MEDS: FOLIC ACID 1MG TAB PO SCH (09:54)
[2024-10-11] MEDS ORDERED: FOLI1TAB11 PO (14:07)
[2024-10-11] MEDS ORDERED: VENL-102 PO (14:07)
[2024-10-11] MEDS ORDERED: LOSA50TA28 PO (14:07)
[2024-10-11] MEDS ORDERED: HOME MED LIST COMPLETE! XX SCH (14:10)
[2024-10-11 14:30] VITALS: BP 138/77
[2024-10-11 14:37] VITALS: BP 141/83; TEMP 98.4; O2SAT 98
[2024-10-11] MEDS: ACAMPROSATE CALCIUM 333MG TABLET (CAMPRAL) PO SCH (15:14)
[2024-10-11] MEDS: VENLAFAXINE 37.5 MG TAB PO SCH (15:14)
[2024-10-11] MEDS: LOSARTAN 50MG TABLET PO SCH (15:14)
[2024-10-11] MEDS: QUEtiapine FUMARATE 50MG TAB PO SCH (20:15)
[2024-10-11] MEDS: hydrOXYzine 50 MG TAB PO PRN (20:15)
[2024-10-11] MEDS ORDERED: cloNIDine 0.1MG TABLET PO PRN (21:00)
[2024-10-11 22:00] VITALS: BP 138/58
[2024-10-12 06:00] VITALS: BP 121/72
[2024-10-12 06:20] VITALS: BP 121/72; TEMP 98.1; O2SAT 97
[2024-10-12 08:16] VITALS: BP 105/66
[2024-10-12] MEDS: CYANOCOBALAMIN 500 MCG TAB PO SCH (08:20)
[2024-10-12] MEDS: VITAMIN D 1,000 INTERNATIONAL UNITS TABLET PO SCH (08:20)
[2024-10-12] MEDS: NALTREXONE 50 MG TAB PO SCH (08:20)
[2024-10-12] MEDS ORDERED: METOPROLOL SUCC (TopROL XL) 50MG **XL** TAB PO SCH (09:00)
[2024-10-12 15:18] VITALS: BP 115/72; TEMP 97.6; O2SAT 98
[2024-10-13 06:40] VITALS: BP 116/56; TEMP 97.7; O2SAT 98
[2024-10-13 08:03] VITALS: BP 132/71
[2024-10-13 08:07] VITALS: BP 132/71
[2024-10-13] MEDS: VENLAFAXINE **XR** 75MG CAPSULE PO SCH (08:07)
[2024-10-13] MEDS ORDERED: QUET50TA4 PO (09:56)
[2024-10-13] MEDS ORDERED: CLONI1TA PO (09:56)
== END 2024-10-13 12:34 | disposition home or self-care (01) | DRG 754 ==
LOC: M ED 15:38 → M ED INP 23:59 → M PSY 10-11 00:54
PROVIDERS: ADMIT Psychiatry & Neurology Psychiatry; ATTEND Psychiatry & Neurology Psychiatry
DX: F32.A Depression, unspecified (principal); F10.90 Alcohol use, unspecified, uncomplicated; F17.290 Nicotine dependence, other tobacco product, uncomplicated; F41.9 Anxiety disorder, unspecified; I10 Essential (primary) hypertension; R45.851 Suicidal ideations; E87.0 Hyperosmolality and hypernatremia; Z91.51 Personal history of suicidal behavior; Z98.84 Bariatric surgery status; Z79.899 Other long term (current) drug therapy; S91.001A Unspecified open wound, right ankle, initial encounter; S91.002A Unspecified open wound, left ankle, initial encounter; X58.XXXA Exposure to other specified factors, initial encounter; Y92.9 Unspecified place or not applicable

== ENCOUNTER → 2024-11-14 | Outpatient (CLI) | payer OTHER, SELFPAY ==
[~2024-11-14] MED LIST changes: +CLONI1TA PO; +FOLI1TAB11 PO; +LOSA50TA28 PO; +VENL-102 PO
== END ==
LOC: M RAD 12:57
PROVIDERS: ATTEND Physician Assistant Medical
DX: S62.306A Unspecified fracture of fifth metacarpal bone, right hand, initial encounter for closed fracture (principal); M25.541 Pain in joints of right hand; W19.XXXA Unspecified fall, initial encounter; Y92.9 Unspecified place or not applicable

== ENCOUNTER 2024-11-25 23:10 | Emergency (ER) | payer OTHER ==
[~2024-11-25] VITALS: Ht 172.7 cm; Wt 120.0 kg
[2024-11-25 23:14] VITALS: BP 103/63; TEMP 97.8; O2SAT 96
== END 2024-11-26 04:45 | disposition left against medical advice (07) ==
LOC: M ED 23:10
DX: Z53.21 Procedure and treatment not carried out due to patient leaving prior to being seen by health care provider (principal)

== ENCOUNTER → 2024-12-02 | Outpatient (REF) | payer OTHER | LOC: M RAD 17:39 | PROVIDERS: ATTEND Physician Assistant | DX: M79.642 Pain in left hand (principal) ==